=== PATIENT | female | born 1980 | race Caucasian/White ===

== ENCOUNTER 2021-01-17 21:11 | Observation (INO) | payer OTHER ==
[2021-01-17] MEDS ORDERED: MORPHINE SULFATE 4 MG/ML SYRINGE IV STA (22:20)
[2021-01-17] MEDS ORDERED: SODIUM CHLORIDE 0.9% 1,000 ML IV STA (22:20)
[2021-01-17] MEDS ORDERED: METOCLOPRAMIDE 5 MG/ML 2 ML VIAL IVP STA (22:20)
[2021-01-17 23:09] LABS: Anisocytosis Slight; Basophils % (A) 0 %; Eosinophils # (A) 0.2 k/uL (0-0.7); Eosinophils % (A) 2 %; HCT 38.9 % (34.0-46.0); HGB 12.7 gm/dL (11.4-16.0); Lymphocytes # (A) 1.1 k/uL (1.0-4.8); Lymphocytes % (A) 12 %; MCH 28.1 pg (25.0-35.0); MCHC 32.8 g/dL (31.0-37.0); MCV 85.8 fL (80.0-100.0); Mean Platelet Volume 7.5; Monocytes # (A) 0.2 k/uL (0-1.0); Monocytes % (A) 2 %; Neutrophils # (A) 7.5 k/uL (1.3-7.7); Neutrophils % (A) 83 %; Platelet Count 283 k/uL (150-450); RBC 4.53 m/uL (3.80-5.40); RDW 17.9 % (11.5-15.5)
[2021-01-17 23:25] LABS: ALT 14 U/L (4-34); AST 25 U/L (14-36); African American GFR (CKD) >90 (>60 ml/min/1.73 sqM); Albumin 4.3 g/dL (3.5-5.0); Alkaline Phosphatase 52 U/L (38-126); Amylase 60 U/L (30-110); Anion Gap 9 mmol/L; Blood Urea Nitrogen 14 mg/dL (7-17); Calcium 8.7 mg/dL (8.4-10.2); Carbon Dioxide 19 mmol/L (22-30); Chloride 113 mmol/L (98-107); Glucose 106 mg/dL (74-99); Lipase 72 U/L (23-300); Non-African American GFR(CKD) >90 (>60 ml/min/1.73 sqM); Potassium 3.5 mmol/L (3.5-5.1); Sodium 141 mmol/L (137-145); Total Bilirubin <0.1 mg/dL (0.2-1.3); Total Protein 6.4 g/dL (6.3-8.2)
[2021-01-17 23:30] LABS: Amorphous Sediment,Urine Many /hpf; Appearance,Urine Turbid (Clear); Bacteria,Urine Occasional /hpf; Bilirubin,Urine Negative (Negative); Blood,Urine Small (Negative); Color,Urine Yellow; Glucose,Urine (UA) Negative (Negative); Ketones,Urine Negative (Negative); Leukocyte Esterase,Urine Trace (Negative); Mucus,Urine Many /hpf; Nitrite,Urine Negative (Negative); PH, Urine 8.5 (5.0-8.0); Protein,Urine 1+ (Negative); RBC,Urine 9 /hpf (0-5); Specific Gravity,Urine 1.023 (1.001-1.035); Squamous Epithelial Cell,Urine 5 /hpf (0-4); Urobilinogen,Urine <2.0 mg/dL (<2.0); WBC,Urine 3 /hpf (0-5)
[2021-01-18] MEDS ORDERED: METOCLOPRAMIDE 5 MG/ML 2 ML VIAL IVP STA (00:18)
[2021-01-18] MEDS ORDERED: MORPHINE SULFATE 4 MG/ML SYRINGE IV STA (00:18)
[2021-01-18] MEDS ORDERED: PROCHLORPERAZINE INJ 10 MG/2 ML VIAL IM STA ×2 (00:55→02:29)
[2021-01-18] MEDS ORDERED: hydrOXYzine HCL 50 MG/ML 1 ML VIAL IM ONE (01:00)
[2021-01-18 01:24] VITALS: RESP 16
[2021-01-18] MEDS ORDERED: HYDROmorphone 0.5 MG/0.5 ML SYRINGE IVP STA (02:29)
[2021-01-18] MEDS ORDERED: PROMETHAZINE SUPPOSITORY 25 MG SUPP RECTAL STA (03:57)
[2021-01-18] MEDS ORDERED: PROMETHAZINE SUPPOSITORY 25 MG SUPP RECTAL ONE (04:15)
--- NOTE | 2021-01-18 04:25 | ED ---
Nausea/Vomiting/Diarrhea HPI - General Chief complaint: Nausea/Vomiting/Diarrhea Stated complaint: vomiting Time Seen by Provider: 01/17/21 21:53 Source: patient Mode of arrival: ambulatory Limitations: no limitations - History of Present Illness MD complaint: nausea, vomiting, abdominal pain -: hour(s) Description of Vomiting: food contents Location: diffuse Radiation: none Severity: severe Quality: aching Consistency: constant Improves with: none Worsens with: none Associated Symptoms: nausea/vomiting - Related Data Allergies Allergy/AdvReac Type Severity Reaction Status Date / Time No Known Allergies Allergy Verified 01/17/21 21:39 Review of Systems ROS Statement: Those systems with pertinent positive or pertinent negative responses have been documented in the HPI. ROS Other: All systems not noted in ROS Statement are negative. Constitutional: Denies: fever, chills Respiratory: Denies: cough, dyspnea Cardiovascular: Denies: chest pain, palpitations Gastrointestinal: Reports: abdominal pain. Denies: nausea, vomiting Past Medical History Additional Past Medical History / Comment(s): Gerd. Ulcers. History of Any Multi-Drug Resistant Organisms: None Reported Additional Past Surgical History / Comment(s): back Past Psychological History: No Psychological Hx Reported Smoking Status: Never smoker Past Alcohol Use History: None Reported Past Drug Use History: None Reported General Exam Limitations: no limitations General appearance: alert, in no apparent distress Head exam: Present: atraumatic, normocephalic Eye exam: Present: normal appearance. Absent: scleral icterus, conjunctival injection ENT exam: Present: mucous membranes dry Neck exam: Present: normal inspection Respiratory exam: Present: normal lung sounds bilaterally. Absent: respiratory distress, wheezes, rales, rhonchi, stridor Cardiovascular Exam: Present: regular rate, normal rhythm, normal heart sounds. Absent: systolic murmur, diastolic murmur, rubs, gallop GI/Abdominal exam: Present: soft, hypoactive bowel sounds. Absent: distended, tenderness, guarding, rebound, rigid, mass, pulsatile mass, hernia Extremities exam: Present: normal inspection, normal capillary refill. Absent: pedal edema, calf tenderness Back exam: Present: normal inspection. Absent: CVA tenderness (R), CVA tenderness (L) Neurological exam: Present: alert Skin exam: Present: warm, dry, intact, normal color. Absent: rash Course Vital Signs 06/01/18/21 01/18/21 21:37 01:24 02:38 Temperature 97.7 F Pulse Rate 73 50 L 54 L Respiratory 18 16 16 Rate Blood Pressure 159/92 139/78 141/78 O2 Sat by Pulse 98 100 99 Oximetry 01/18/21 04:24 Temperature 98.0 F Pulse Rate 57 L Respiratory 16 Rate Blood Pressure 143/85 O2 Sat by Pulse 99 Oximetry Medical Decision Making - Lab Data Result diagrams: 01/17/21 23:03 01/17/21 23:03 Lab Results 01/17/21 01/17/21 01/17/21 Range/Units 23:03 23:03 23:03 WBC 9.0 (3.8-10.6) k/uL RBC 4.53 (3.80-5.40) m/uL Hgb 12.7 (11.4-16.0) gm/dL Hct 38.9 (34.0-46.0) % MCV 85.8 (80.0-100.0) fL MCH 28.1 (25.0-35.0) pg MCHC 32.8 (31.0-37.0) g/dL RDW 17.9 H (11.5-15.5) % Plt Count 283 (150-450) k/uL MPV 7.5 Neutrophils % 83 % Lymphocytes % 12 % Monocytes % 2 % Eosinophils % 2 % Basophils % 0 % Neutrophils # 7.5 (1.3-7.7) k/uL Lymphocytes # 1.1 (1.0-4.8) k/uL Monocytes # 0.2 (0-1.0) k/uL Eosinophils # 0.2 (0-0.7) k/uL Basophils # 0.0 (0-0.2) k/uL Anisocytosis Slight Sodium 141 (137-145) mmol/L Potassium 3.5 (3.5-5.1) mmol/L Chloride 113 H (98-107) mmol/L Carbon Dioxide 19 L (22-30) mmol/L Anion Gap 9 mmol/L BUN 14 (7-17) mg/dL Creatinine 0.57 (0.52-1.04) mg/dL Est GFR (CKD-EPI)AfAm >90 (>60 ml/min/1.73 sqM) Est GFR (CKD-EPI)NonAf >90 (>60 ml/min/1.73 sqM) Glucose 106 H (74-99) mg/dL Calcium 8.7 (8.4-10.2) mg/dL Total Bilirubin <0.1 L (0.2-1.3) mg/dL AST 25 (14-36) U/L ALT 14 (4-34) U/L Alkaline Phosphatase 52 (38-126) U/L Total Protein 6.4 (6.3-8.2) g/dL Albumin 4.3 (3.5-5.0) g/dL Amylase 60 (30-110) U/L Lipase 72 (23-300) U/L Urine Color Yellow Urine Appearance Turbid H (Clear) Urine pH 8.5 H (5.0-8.0) Ur Specific [place] 1.023 (1.001-1.035) Urine Protein 1+ H (Negative) Urine Glucose (UA) Negative (Negative) Urine Ketones Negative (Negative) Urine Blood Small H (Negative) Urine Nitrite Negative (Negative) Urine Bilirubin Negative (Negative) Urine Urobilinogen <2.0 (<2.0) mg/dL Ur Leukocyte Esterase Trace H (Negative) Urine RBC 9 H (0-5) /hpf Urine WBC 3 (0-5) /hpf Ur Squamous Epith Cells 5 H (0-4) /hpf Amorphous Sediment Many H (None) /hpf Urine Bacteria Occasional H (None) /hpf Urine Mucus Many H (None) /hpf Disposition Referrals: Nonstaff,Physician [Primary Care Provider] - 1-2 days
[2021-01-18] MEDS ORDERED: ONDANSETRON 4 MG in SODIUM CHLORIDE 0.9% 50 ML IVPB PRN (04:47)
--- NOTE | 2021-01-18 04:53 | P.HPIM ---
History of Present Illness H&P Date: 01/18/21 The patient is a 40-year-old female with a PMH of marijuana abuse who presented to the emergency room with complaints of intractable nausea and vomiting. Patient reports that she suddenly started vomiting 36 hours ago and has not been able to stop since then despite [id number] antiemetics. She also reports 7 out of 10 diffuse abdominal pain during this time, no clear alleviating or exacerbating features. Reports throwing up small amounts of nonbloody nonbilious vomitus every few minutes. She reports that similar episodes occur every few months and she normally gets admitted for to the hospital for a few days and that they resolve spontaneously. Reports having 2 loose bowel movemen ts since the onset of her symptoms. She reports having undergone a workup previously and was told that a clear cause was not found. She admits to smoking marijuana every other day. She denied chest pain, shortness of breath, cough, fever, chills. Denied headaches, visual disturbances, weakness, numbness, tingling. She underwent an extensive evaluation in the emergency room with laboratory evaluation remarkable for a chloride of 113, and CO2 19. Review of systems: Pertinent positives and negatives as discussed in HPI, a complete review of systems was performed and all other systems are negative. Physical examination: General: non toxic, no distress, appears older than stated age, normal weight Derm: no unusual rashes/lesions no unusual ecchymoses, warm, dry Head: atraumatic, normocephalic, symmetric Eyes: EOMI, no lid lag, anicteric sclera, pupils equal round reactive to light ENT: Nose and ears atraumatic, no thrush, no pharyngeal erythema Neck: No thyromegaly, no cervical lymphadenopathy, trachea midline, supple Mouth: no lip lesion, mucus membranes moist Cardiovascular: S1S2 reg, no murmur, positive posterior tibial pulse bilateral, no edema, capillary refill less than 2 seconds Lungs: CTA bilateral, no rhonchi, no rales , no accessory muscle use Abdominal: soft, mild diffuse tenderness, no guarding, no appreciable organomegaly, normal bowel sounds Ext: no gross muscle atrophy, muscle strength 5 out of 5 in all 4 extremities grossly, no contractures, Neuro: CN II-XI grossly intact, light touch intact all 4 extremities, finger to nose within normal limits, Psych: Alert, oriented, appropriate affect Assessment/plan Intractable nausea and vomiting, possibly cannabinoid hyperemesis syndrome -Continue with antiemetics -IV fluids -Obtain lactate level -Follow-up CT abdomen as ordered by the ED physician -Obtain EKG -Advised on importance of cessation of marijuana use DVT prophylaxis -Heparin subq Discussed with: Patient Anticipated discharge date: in am Anticipated discharge place: Home A total of 35 minutes was spent on the care of this complex patient more than 50% of the time was spent in counseling and care coordination. Past Medical History Additional Past Medical History / Comment(s): Gerd. Ulcers. History of Any Multi-Drug Resistant Organisms: None Reported Additional Past Surgical History / Comment(s): back Past Psychological History: No Psychological Hx Reported Smoking Status: Never smoker Past Alcohol Use History: None Reported Past Drug Use History: None Reported Medications and Allergies Allergies Allergy/AdvReac Type Severity Reaction Status Date / Time No Known Allergies Allergy Verified 01/17/21 21:39 Physical Exam Vitals: Vital Signs Temp Pulse Resp BP Pulse Ox 01/18/21 04:24 98.0 F 57 L 16 143/85 99 01/18/21 02:38 54 L 16 141/78 99 01/18/21 01:24 50 L 16 139/78 100 01/17/21 21:37 97.7 F 73 18 159/92 98 Intake and Output 01/17/21 01/17/21 01/18/21 14:59 22:59 06:59 Other: Weight 54.431 kg Results CBC & Chem 7: 01/17/21 23:03 01/17/21 23:03 Labs: Abnormal Lab Results - Last 24 Hours (Table) 01/17/21 01/17/21 01/17/21 Range/Units 23:03 23:03 23:03 RDW 17.9 H (11.5-15.5) % Chloride 113 H (98-107) mmol/L Carbon Dioxide 19 L (22-30) mmol/L Glucose 106 H (74-99) mg/dL Total Bilirubin <0.1 L (0.2-1.3) mg/dL Urine Appearance Turbid H (Clear) Urine pH 8.5 H (5.0-8.0) Urine Protein 1+ H (Negative) Urine Blood Small H (Negative) Ur Leukocyte Esterase Trace H (Negative) Urine RBC 9 H (0-5) /hpf Ur Squamous Epith Cells 5 H (0-4) /hpf Amorphous Sediment Many H (None) /hpf Urine Bacteria Occasional H (None) /hpf Urine Mucus Many H (None) /hpf
[2021-01-18] MEDS ORDERED: MELATONIN 5 MG TABLET PO ONE (05:00)
--- NOTE | 2021-01-18 05:07 | CT ---
EXAMINATION TYPE: CT abdomen pelvis w con DATE OF EXAM: 01/18/2021 COMPARISON: None HISTORY: Abdominal pain CT DLP: mGycm Automated exposure control for dose reduction was used. CONTRAST: Performed , patient injected with mL of . The contrast was Isovue 100 mL. Of lung bases are clear. There is no pleural effusion. Heart size is normal. There is no pericardial effusion. Liver spleen stomach pancreas gallbladder appear normal. The bile ducts are not dilated. There is no adrenal mass. Kidneys show satisfactory contrast opacification. There is no hydronephrosi s. Ureters are not dilated. There is no retroperitoneal adenopathy. Appendix appears normal. Bladder distends smoothly. Delayed images show normal renal excretion. There is no inguinal hernia. There is small amount of free fluid in the pelvis. Uterus is anteverted. There is 3 cm cyst on the right ovary. There is no mesenteric edema. There is no ascites or free air. There is no evidence of bowel obstruct ion. The lumbar vertebra have normal alignment. There is posterior disc herniation at L2-3 with some impingement on the spinal canal. The bony pelvis is intact. The hip joints are intact. There is no hi p dysplasia. IMPRESSION: Normal appendix. Right ovarian cyst. No solid pelvic mass. Small amount of low-density free fluid in the pelvis. Clinical significance is not clear. Moderate-sized posterior L2-3 lumbar disc herniation. Smaller L1-2 lumbar disc herniation.
[2021-01-18] MEDS: SODIUM CHLORIDE 0.9% 1,000 ML IV SCH ×2 (05:09→16:28)
[2021-01-18] MEDS ORDERED: NALOXONE 0.4 MG/ML 1 ML VIAL IV PRN (05:24)
[2021-01-18] MEDS ORDERED: MORPHINE SULFATE 4 MG/ML SYRINGE IV PRN (05:24)
[2021-01-18] MEDS ORDERED: PROCHLORPERAZINE 5 MG TAB PO PRN (08:00)
[2021-01-18] MEDS: HEPARIN SODIUM,PORCINE/PF 5,000 UNIT/0.5 ML SYRINGE SQ SCH ×2 (08:25→16:24)
[2021-01-18] MEDS ORDERED: PANTOPRAZOLE 40 MG/10 ML VIAL IV SCH (09:00)
[2021-01-18] MEDS: ONDANSETRON 4 MG/2 ML VIAL IVP PRN ×2 (11:46→16:22)
[2021-01-18] MEDS ORDERED: PROMETHAZINE 25 MG TAB PO PRN (12:00)
[2021-01-18] MEDS ORDERED: MORPHINE SULFATE 2 MG/ML SYRINGE IV PRN (14:19)
--- NOTE | 2021-01-18 14:28 | P.PN ---
Subjective Progress Note Date: 01/18/21 Patient still having difficulty with nausea and vomiting. She is unable to keep anything down. She is also complaining of nonspecific pain all over her abdomen. Objective - Vital Signs Vital signs: Vital Signs Temp 98.5 F 01/18/21 06:43 Pulse 64 01/18/21 08:38 Resp 16 01/18/21 08:38 BP 156/79 01/18/21 06:43 Pulse Ox 98 01/18/21 08:38 Intake & Output 01/17/21 01/18/21 01/18/21 18:59 06:59 18:59 Output Total 200 Balance -200 Weight 59.3 kg Output: Urine 200 Other: Voiding Method Toilet - Exam General: The patient is awake and alert, in no distress Eye: there is normal conjunctiva bilaterally. Neck: The neck is supple, there is no JVD. Cardiovascular: Normal S1-S2, no S3-S4, no murmurs. Respiratory: Lungs clear to auscultation bilaterally Gastrointestinal: Abdomen is soft, nontender Musculoskeletal: There is no pedal edema. Neurological:. Speech is normal. Skin: Skin is warm and dry - Labs CBC & Chem 7: 01/17/21 23:03 01/17/21 23:03 Labs: Abnormal Lab Results - Last 24 Hours (Table) 01/17/21 01/17/21 01/17/21 Range/Units 23:03 23:03 23:03 RDW 17.9 H (11.5-15.5) % Chloride 113 H (98-107) mmol/L Carbon Dioxide 19 L (22-30) mmol/L Glucose 106 H (74-99) mg/dL Total Bilirubin <0.1 L (0.2-1.3) mg/dL Urine Appearance Turbid H (Clear) Urine pH 8.5 H (5.0-8.0) Urine Protein 1+ H (Negative) Urine Blood Small H (Negative) Ur Leukocyte Esterase Trace H (Negative) Urine RBC 9 H (0-5) /hpf Ur Squamous Epith Cells 5 H (0-4) /hpf Amorphous Sediment Many H (None) /hpf Urine Bacteria Occasional H (None) /hpf Urine Mucus Many H (None) /hpf Assessment and Plan Assessment: This is a 40-year-old female with past medical history significant for marijuana abuse that presented to the emergency room with worsening nausea and vomiting. Patient was evaluated in the ER and admitted to the hospital for further management of her medical problems noted below 1. Intractable nausea and vomiting, most likely secondary to cannabinoid hyperemesis syndrome. Patient was counseled extensively to quit smoking marijuana. Computed tomography scan of the abdomen and pelvis with no acute findings. 2. Underlying seizure disorder: Continue home medication 3. DVT prophylaxis with subcu heparin Today, I reviewed her medication list and lab work results. Continue IV fluid hydration. Antiemetic as needed. Patient was having bouts of diarrhea awaiting C. diff screen
[2021-01-18 15:07] VITALS: BP 150/89; PULSE 49; TEMP 99
[2021-01-18] MEDS ORDERED: MELATONIN 5 MG TABLET PO SCH ×2 (21:00)
[2021-01-18] MEDS ORDERED: OXcarbazepine 300 MG TAB PO SCH (21:00)
--- NOTE | 2021-01-19 10:14 | P.DS ---
Providers Date of admission: 01/18/21 05:27 Expected date of discharge: 01/19/21 Attending physician: Joy Chavez MD Primary care physician: Physician Nonstaff Hospital Course: Patient left the hospital AGAINST MEDICAL ADVICE. Please refer to the electronic chart for further details about this hospitalization. Plan - Discharge Summary Discharge Rx Participant: Yes New Discharge Prescriptions: No Action OXcarbazepine [Trileptal] 900 mg PO HS Discharge Medication List OXcarbazepine [Trileptal] 900 mg PO HS 01/18/21 [History] Follow up Appointment(s)/Referral(s): Nonstaff,Physician [Primary Care Provider] - 1-2 days Discharge Disposition: Left Against Medical Advice
== END 2021-01-18 17:43 | disposition left against medical advice (07) ==
LOC: EC 21:11 → 6PED 01-18 05:27
PROVIDERS: ADMIT Internal Medicine; ATTEND Internal Medicine
DX: R11.2 Nausea with vomiting, unspecified (principal); R10.84 Generalized abdominal pain; R19.7 Diarrhea, unspecified; Z53.29 Procedure and treatment not carried out because of patient's decision for other reasons; F12.10 Cannabis abuse, uncomplicated; K21.9 Gastro-esophageal reflux disease without esophagitis; G40.909 Epilepsy, unspecified, not intractable, without status epilepticus; Z20.822 Contact with and (suspected) exposure to COVID-19; Z87.11 Personal history of peptic ulcer disease; Z79.899 Other long term (current) drug therapy
CPT/HCPCS: 96361 ×3; 96372 ×2; 96375 ×3; 96376 ×2; 96374; 99285; 36415 ×2; 93005; 80053; 82150; 83605; 83690; 85025; 81001; 87635; 74177; G0378; S0183; J2270 ×3; J0780; J2765 ×2; J2405 ×2; J3410; C9113; J1170; Q9967; J1644

== ENCOUNTER → 2021-03-11 | Outpatient (CLI) | payer OTHER ==
--- NOTE | 2021-03-12 11:59 | CT ---
EXAMINATION TYPE: CT brain wo con DATE OF EXAM: 03/11/2021 COMPARISON: None HISTORY: 40 year-old female history of migraines, stroke AND EPILEPSY. 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 Coronal and sagittal r econstructions performed. CT DLP: 1385.4 mGycm Automated exposure control for dose reduction was used. FINDINGS: There is no evidence of acute intracranial hemorrhage, acute ischemic changes, mass effect, or extra -axial fluid collection. There is no effacement of cerebral sulci or basal subarachnoid cisterns. T here is no hydrocephalus. There is no midline shift. Mathias-white matter distinction is preserved. Prominent CSF space near the region of the left cavernous sinus measuring 2.0 cm AP by 1.4 cm cranial caudal by 1.0 cm wide. Very mild cortical volume loss along the frontal convexities. Leftward nasal septal deviation. Paranasal sinuses and mastoid air cells well pneumatized. Orbits and globes are intact. IMPRESSION: 1. Asymmetric enlargement of the left Meckel's cave. This may be an incidental finding but may be a m arker for elevated intracranial pressures (such as in setting of pseudotumor cerebri). There have als o been some reports of associated spontaneous CSF leak. Underlying arachnoid cyst, epidermoid cyst, o r dural ectasia are also considerations. Given the patient's symptoms, consider neurosurgery referral to determine the clinical significance of this finding. 2. Otherwise, no acute intracranial abnormality seen.
== END | disposition home or self-care (01) ==
LOC: RADCTMAIN 19:00
PROVIDERS: ATTEND Family Medicine
DX: G93.89 Other specified disorders of brain (principal); I63.9 Cerebral infarction, unspecified; Q43.0 Meckel's diverticulum (displaced) (hypertrophic); G96.00 Cerebrospinal fluid leak, unspecified; G40.409 Other generalized epilepsy and epileptic syndromes, not intractable, without status epilepticus; R41.3 Other amnesia; G43.909 Migraine, unspecified, not intractable, without status migrainosus
CPT/HCPCS: 70450

== ENCOUNTER → 2021-05-19 | Outpatient (CLI) | payer OTHER ==
[2021-05-19 16:18] LABS: Partial Thromboplastin Time 24.9 sec (22.0-30.0); Prothrombin Time 10.5 sec (9.0-12.0)
[2021-05-20 01:17] LABS: HCT 37.3 % (37.2-46.3); HGB 11.9 g/dL (12.0-15.0); MCH 28.5 pg (27.0-32.0); MCHC 31.9 g/dL (32.0-37.0); MCV 89.2 fL (80.0-97.0); Mean Platelet Volume 11.2 fL (9.5-12.2); Platelet Count 237 X 10*3/uL (140-440); RBC 4.18 X 10*6/uL (4.10-5.20); RDW 16.2 % (11.5-14.5); WBC 6.86 X 10*3/uL (4.50-10.00)
[2021-05-20 06:43] LABS: % Iron Saturation 8.42 (12.00-45.00); ALT 13 U/L (8-44); AST 16 U/L (13-35); African American GFR (CKD) 107.6 (60.0-200.0); Albumin 4.7 g/dL (3.8-4.9); Albumin/Globulin Ratio 2.61 (1.60-3.17); Alkaline Phosphatase 60 U/L (41-126); BUN/Creat Ratio 20.75 Ratio (12.00-20.00); Blood Urea Nitrogen 16.6 mg/dL (9.0-27.0); Calcium 9.2 mg/dL (8.7-10.3); Chloride 103 mmol/L (96-109); Chol/HDL Ratio 2.29 Ratio; Ferritin 7.5 ng/mL (10.0-291.0); Globulin 1.8 g/dL (1.6-3.3); Glucose 76 mg/dL (70-110); Iron 38 ug/dL (50-170); LDL Cholesterol,Calculated 76.9 mg/dL (0.0-131.0); Non-African American GFR(CKD) 92.9 (60.0-200.0); Phosphorus 3.5 mg/dL (2.4-5.1); Potassium 3.8 mmol/L (3.5-5.5); Prealbumin 24.8 mg/dL (18.0-42.0); Sodium 139 mmol/L (135-145); Total Bilirubin <0.20 mg/dL (0.30-1.20); Total Iron Binding Capacity 447 ug/dL (228-460); Total Protein 6.5 g/dL (6.2-8.2)
== END | disposition home or self-care (01) ==
LOC: LABWHC1 14:43
PROVIDERS: ATTEND Psychiatry & Neurology Pain Medicine
DX: D64.9 Anemia, unspecified (principal); R56.9 Unspecified convulsions; E89.1 Postprocedural hypoinsulinemia; D50.8 Other iron deficiency anemias; E44.0 Moderate protein-calorie malnutrition; E55.9 Vitamin D deficiency, unspecified; K74.1 Hepatic sclerosis; N19 Unspecified kidney failure; K50.90 Crohn's disease, unspecified, without complications
CPT/HCPCS: 36415; 80053; 80061; 80183; 82306; 82525; 82607; 82728; 82746; 83036; 83540; 83550; 83735; 83970; 84100; 84134; 84207; 84255; 84425; 84439; 84443; 84481; 84590; 84630; 85027; 85610; 85730

== ENCOUNTER → 2021-06-20 | Day surgery (SDC) | payer OTHER ==
[2021-06-16 13:22] VITALS: BMI 22.1
[~2021-06-20] MED LIST: LACTATED RINGERS 1,000 ML IV SCH; LIDOCAINE 1% (10MG/ML) FOR IV START INTRADERMA ONE
--- NOTE | 2021-06-20 06:57 | P.GSHP ---
History of Present Illness H&P Date: 06/20/21 CHIEF COMPLAINT: GERD HISTORY OF PRESENT ILLNESS: The patient is a 40-year-old female who presents reports gastroesophageal reflux disease. Upper endoscopy was offered for further evaluation and management. PAST MEDICAL HISTORY: Please see list. PAST SURGICAL HISTORY: Please see list. MEDICATIONS: Please see list. ALLERGIES: Please see list. SOCIAL HISTORY: No illicit drug use FAMILY HISTORY: No reports of Crohn disease or ulcerative colitis. REVIEW OF ORGAN SYSTEMS: CONSTITUTIONAL: No reports of fevers or chills. GI: Denies any blood in stools or constipation. PHYSICAL EXAM: VITAL SIGNS: Stable GENERAL: Well-developed and pleasant in no acute distress. HEENT: No scleral icterus. Extraocular movements grossly intact. Moist buccal mucosa. NECK: Supple without lymphadenopathy. CHEST: Unlabored respirations. Equal bilateral excursions. CARDIOVASCULAR: Regular rate and rhythm. Distal 2+ pulses. ABDOMEN: Soft, nondistended. MUSCULOSKELETAL: No clubbing, cyanosis, or edema. ASSESSMENT: 1. Gastroesophageal reflux disease PLAN: 1. Recommend proceeding with an upper endoscopy Past Medical History Past Medical History: Asthma, Cancer, GERD/Reflux, Seizure Disorder Additional Past Medical History / Comment(s): POTS, LAST SEIZURE MONTHS AGO, HX TIA 2014 WHICH "AFFECTED MEMORY & COGNITIVE FUNCTION", STOMACH ULCERS, NAUSEA & VOMITING., BACK PAIN, MELANOMA , RECENT ANEMIA AND LOW B-12, MIGRAINES History of Any Multi-Drug Resistant Organisms: None Reported Past Surgical History: Back Surgery Additional Past Surgical History / Comment(s): 14 LAPAROSCOPIES, AND 15 D & C'S- PATIENT WILL BRING LIST OF ADDITIONAL SURGERIES Past Anesthesia/Blood Transfusion Reactions: No Reported Reaction, Motion Sickness Additional Past Anesthesia/Blood Transfusion Reaction / Comment(s): MOTHER- PONV AND HEADACHES Past Psychological History: Anxiety Smoking Status: Never smoker Past Alcohol Use History: None Reported Additional Past Alcohol Use History / Comment(s): SMOKES 1-2 CIGARETTES/DAY, STARTED SMOKING AGE 12., HX OF 1PPD. Past Drug Use History: Marijuana Additional Drug Use History / Comment(s): CURRENT MARIJUANA - Past Family History Mother Family Medical History: No Reported History Medications and Allergies Home Medications Medication Instructions Recorded Confirmed Type OXcarbazepine [Trileptal] 900 mg PO HS 01/18/21 06/16/21 History Albuterol Sulfate [Proair Hfa] 1 - 2 puff INHALATION Q6HR PRN 06/16/21 06/16/21 History Fluticasone Nasal [place] [Flonase 2 spray EA NOSTRIL DAILY PRN 06/16/21 06/16/21 History Nasal [place]] Ibuprofen [Motrin Ib] 800 mg PO DIRECTED 06/16/21 06/16/21 History Omeprazole 40 mg PO BID 06/16/21 06/16/21 History SUMAtriptan SUCCINATE [Imitrex] 100 mg IM DIRECTED PRN 06/16/21 06/16/21 History Toradol (Unknown Dose) 1 dose PO DAILY 06/16/21 History cloNIDine HCL [Catapres] 0.1 mg PO HS 06/16/21 06/16/21 History tiZANidine [Zanaflex] 4 mg PO BID 06/16/21 06/16/21 History Allergies Allergy/AdvReac Type Severity Reaction Status Date / Time fludrocortisone Allergy Severe ELEVATED Verified 06/16/21 12:56 [From [facility]] BLOODPRESSURE
[2021-06-20 09:08] VITALS: TEMP 98.3
[2021-06-20 10:07] VITALS: RESP 16
[2021-06-20 10:36] VITALS: BP 115/74; PULSE 61
--- NOTE | 2021-06-20 11:28 | P.PCN ---
Date of Procedure: 06/20/21 Description of Procedure: PREOPERATIVE DIAGNOSIS: Gastroesophageal reflux disease Epigastric abdominal pain Dysphagia POSTOPERATIVE DIAGNOSIS: Gastroesophageal reflux disease Epigastric abdominal pain Dysphagia Upper esophageal stenosis Gastritis with recent bleed OPERATION: Esophagogastroduodenoscopy with rigid dilator over the guidewire 57 Fr with dilation Esophagogastroduodenoscopy with cold forceps biopsies stomach/antrum SURGEON: Stephanie Olivo MD ANESTHESIA: MAC. INDICATIONS: The patient is a 40-year-old male who presents with a history of gastroesophageal reflux disease with abdominal pain. Benefits and risks of the procedure were described. Informed consent was obtained. DESCRIPTION: The patient was brought into the endoscopy suite and laid in the left lateral decubitus position. After a timeout was confirmed, the procedure was initiated. An Olympus gastroscope was passed into the posterior oropharynx where an upper esophageal stenosis was identified. The scope was passed down to the distal esophagus. The scope was entered into the body of the stomach. The duodenal sphincter was hypertensive. The scope was gently pressed and entered into the duodenal bulb to the fourth portion of the duodenum without ulceration or duodenitis. To address the upper esophageal stenosis, rigid dilator over guidewire was selected. Next using an English rigid dilator, a guidewire was placed through the gastroscope. Next the scope was withdrawn. A 57-[place]ian rigid English dilator was passed carefully along the posterior oropharynx to 45 cm and left in place for 2-3 minutes stretch. The dilator was withdrawn including the guidewire. The scope was reentered along the posterior oropharynx with no findings of full- thickness tear of the upper esophageal sphincter. Additional findings below. Within the stomach, mild gastritis was identified along the body of the stomach with cold forceps biopsies obtained. The large esophageal valve was evaluated with Hill grade 2 lower esophageal valve. LA grade B erosive esophagitis was identified. No full-thickness injury was encountered. The GI tract was desufflated. The patient tolerated the procedure well. FINDINGS: Upper esophageal stenosis dilated 57-[place]ian rigid dilator Diaphragmatic hiatus at 39 cm from the incisors Squamocolumnar junction 38 cm from the incisors. Gastritis along the gastric body and fundus cold forceps biopsies obtained Duodenum without ulcers LA grade B erosive esophagitis Hill grade 2 lower esophageal valve. RECOMMENDATIONS: Omeprazole 40 mg daily Upper endoscopy as needed Recommend esophagram Plan - Discharge Summary New Discharge Prescriptions: Continue tiZANidine [Zanaflex] 4 mg PO BID Omeprazole 40 mg PO BID OXcarbazepine [Trileptal] 900 mg PO HS cloNIDine HCL [Catapres] 0.1 mg PO HS Fluticasone Nasal [place] [Flonase Nasal [place]] 2 spray EA NOSTRIL DAILY PRN PRN Reason: Allergy Symptoms Albuterol Sulfate [Proair Hfa] 1 - 2 puff INHALATION Q6HR PRN PRN Reason: Shortness Of Breath Toradol (Unknown Dose) 1 dose PO DAILY Ibuprofen [Motrin Ib] 800 mg PO DIRECTED SUMAtriptan SUCCINATE [Imitrex] 100 mg IM DIRECTED PRN PRN Reason: Migraine Headache Discharge Medication List OXcarbazepine [Trileptal] 900 mg PO HS 01/18/21 [History] Albuterol Sulfate [Proair Hfa] 1 - 2 puff INHALATION Q6HR PRN 06/16/21 [History] Fluticasone Nasal [place] [Flonase Nasal [place]] 2 spray EA NOSTRIL DAILY PRN 06/16/21 [History] Ibuprofen [Motrin Ib] 800 mg PO DIRECTED 06/16/21 [History] Omeprazole 40 mg PO BID 06/16/21 [History] SUMAtriptan SUCCINATE [Imitrex] 100 mg IM DIRECTED PRN 06/16/21 [History] Toradol (Unknown Dose) 1 dose PO DAILY 06/16/21 [History] cloNIDine HCL [Catapres] 0.1 mg PO HS 06/16/21 [History] tiZANidine [Zanaflex] 4 mg PO BID 06/16/21 [History] Follow up Appointment(s)/Referral(s): Stephanie Olivo MD [STAFF PHYSICIAN] - 07/07/21 Patient Instructions/Handouts: *Surgery [facility] - (Anesthesia) Endoscopy Discharge Instructions, Gastritis (DC), Upper Endoscopy (DC), Esophageal Dilation (DC) Discharge Disposition: HOME SELF-CARE
== END | disposition home or self-care (01) ==
LOC: ORWHC2ENDO 08:27
PROVIDERS: ATTEND Surgery Plastic and Reconstructive Surgery
DX: K22.2 Esophageal obstruction (principal); K21.9 Gastro-esophageal reflux disease without esophagitis; J45.909 Unspecified asthma, uncomplicated; Z88.8 Allergy status to other drugs, medicaments and biological substances; I10 Essential (primary) hypertension; G40.909 Epilepsy, unspecified, not intractable, without status epilepticus; I49.8 Other specified cardiac arrhythmias; I69.311 Memory deficit following cerebral infarction; I69.319 Unspecified symptoms and signs involving cognitive functions following cerebral infarction; Z87.11 Personal history of peptic ulcer disease; Z85.820 Personal history of malignant melanoma of skin; Z97.2 Presence of dental prosthetic device (complete) (partial); Z98.890 Other specified postprocedural states; F17.210 Nicotine dependence, cigarettes, uncomplicated; F41.9 Anxiety disorder, unspecified; Z79.1 Long term (current) use of non-steroidal anti-inflammatories (NSAID); Z79.899 Other long term (current) drug therapy
CPT/HCPCS: 43239; 43248; 43249; 81025; 84703; 88305

== ENCOUNTER 2021-12-06 16:40 | Emergency (ER) | payer OTHER ==
[2021-12-06 17:25] VITALS: BP 160/103; PULSE 91; RESP 18; TEMP 98.2
[2021-12-06 17:49] LABS: Appearance,Urine Cloudy (Clear); Bilirubin,Urine Negative (Negative); Blood,Urine Large (Negative); Color,Urine Yellow; Glucose,Urine (UA) Negative (Negative); Ketones,Urine Negative (Negative); Leukocyte Esterase,Urine Large (Negative); Mucus,Urine Rare /hpf; Nitrite,Urine Negative (Negative); PH, Urine 7.5 (5.0-8.0); Protein,Urine 1+ (Negative); RBC,Urine >182 /hpf (0-5); Squamous Epithelial Cell,Urine 1 /hpf (0-4); Urobilinogen,Urine <2.0 mg/dL (<2.0); WBC,Urine >182 /hpf (0-5)
--- NOTE | 2021-12-06 18:26 | ED ---
Female Urogenital HPI - General Chief complaint: Urogenital Stated complaint: Vaginal bleeding Source: patient, RN notes reviewed Mode of arrival: ambulatory Limitations: no limitations - History of Present Illness Initial comments: This is a pleasant 41-year-old female with a history of endometriosis, interstitial cystitis, who presents to the emergency department complaining of dysuria and hematuria. Patient states that she has had multiple urinary tract infections in the past. Patient states she recently called her [employer] and had antibiotics called in. However, she recurrent a has dysuria and hematuria. Patient bleeding from no other sites. Patient feels well otherwise. No fever. No significant back or flank pain. No chest pain or shortness of breath. Patient denies chance of . Patient states she just finished her menstrual period. Patient states that she is in between primary care physicians. - Related Data Home Medications Medication Instructions Recorded Confirmed OXcarbazepine [Trileptal] 900 mg PO HS 01/18/21 06/16/21 Albuterol Sulfate [Proair Hfa] 1 - 2 puff INHALATION Q6HR PRN 06/16/21 06/16/21 Fluticasone Nasal [place] [Flonase 2 spray EA NOSTRIL DAILY PRN 06/16/21 06/16/21 Nasal [place]] Ibuprofen [Motrin Ib] 800 mg PO DIRECTED 06/16/21 06/16/21 Omeprazole 40 mg PO BID 06/16/21 06/16/21 SUMAtriptan SUCCINATE [Imitrex] 100 mg IM DIRECTED PRN 06/16/21 06/16/21 Toradol (Unknown Dose) 1 dose PO DAILY 06/16/21 cloNIDine HCL [Catapres] 0.1 mg PO HS 06/16/21 06/16/21 tiZANidine [Zanaflex] 4 mg PO BID 06/16/21 06/16/21 Previous Rx's Medication Instructions Recorded Nitrofurantoin Monohyd/M-Cryst 100 mg PO Q12HR #14 cap 12/06/21 [Macrobid] Allergies Allergy/AdvReac Type Severity Reaction Status Date / Time fludrocortisone Allergy Severe ELEVATED Verified 12/06/21 17:25 [From [place]] BLOODPRESSURE Review of Systems ROS Statement: Those systems with pertinent positive or pertinent negative responses have been documented in the HPI. ROS Other: All systems not noted in ROS Statement are negative. Past Medical History Past Medical History: Asthma, Cancer, GERD/Reflux, Hypertension, Seizure Disorder Additional Past Medical History / Comment(s): POTS, LAST SEIZURE MONTHS AGO, HX TIA 2014 WHICH "AFFECTED MEMORY & COGNITIVE FUNCTION", STOMACH ULCERS, NAUSEA & VOMITING., BACK PAIN, MELANOMA , RECENT ANEMIA AND LOW B-12, MIGRAINES History of Any Multi-Drug Resistant Organisms: None Reported Past Surgical History: Back Surgery Additional Past Surgical History / Comment(s): 14 LAPAROSCOPIES, AND 15 D & C'S- PATIENT WILL BRING LIST OF ADDITIONAL SURGERIES Past Anesthesia/Blood Transfusion Reactions: No Reported Reaction, Motion Sickness Additional Past Anesthesia/Blood Transfusion Reaction / Comment(s): MOTHER- PONV AND HEADACHES Past Psychological History: Anxiety Smoking Status: Never smoker Past Alcohol Use History: None Reported Past Drug Use History: Marijuana - Past Family History Mother Family Medical History: No Reported History General Exam - General Exam Comments Initial Comments: Patient does not appear to be ill or toxic. Vital signs reviewed. Blood pressure 160/103. Limitations: no limitations General appearance: alert, in no apparent distress Head exam: Present: atraumatic, normocephalic, normal inspection Eye exam: Present: normal appearance, PERRL, EOMI. Absent: scleral icterus, conjunctival injection, periorbital swelling ENT exam: Present: normal exam, normal oropharynx, mucous membranes moist, normal external ear exam. Absent: mucous membranes dry Neck exam: Present: normal inspection, full ROM. Absent: tenderness, meningismus, lymphadenopathy Respiratory exam: Present: normal lung sounds bilaterally. Absent: respiratory distress, wheezes, rales, rhonchi, stridor Cardiovascular Exam: Present: regular rate, normal rhythm, normal heart sounds. Absent: systolic murmur, diastolic murmur, rubs, gallop, clicks GI/Abdominal exam: Present: soft, normal bowel sounds. Absent: distended, tenderness, guarding, rebound, rigid Extremities exam: Present: normal inspection, full ROM, normal capillary refill. Absent: tenderness, pedal edema, joint swelling, calf tenderness Back exam: Present: normal inspection Neurological exam: Present: alert, oriented X3, CN II-XII intact Psychiatric exam: Present: normal affect, normal mood Skin exam: Present: warm, dry, intact, normal color. Absent: rash Course Vital Signs 05/10/22 17:22 Temperature 98.2 F Pulse Rate 91 Respiratory 18 Rate Blood Pressure 160/103 O2 Sat by Pulse 98 Oximetry Medical Decision Making - Medical Decision Making Patient percents with hematuria. States she has recurrent UTIs. Patient also has had suspected diagnosis of a history of interstitial cystitis. No fever or chills. Patient has significant white cells and red cells on urinalysis. However there is no bacteria and negative nitrite. I'm not convinced this is infectious in etiology. I'm going to cover with antibiotics until she can get to urology. Ultrasound was normal. I'm going to add on a computed tomography scan as the patient has had melanoma in the past. Renal function is normal. Patient's computed tomography scan shows an intrarenal right kidney stone which is small and nonobstructing. Suspect this may not be related to the patient's symptomology. There is no evidence of tumor. We'll have the patient follow-up with urology. The case was discussed in detail with ED attending physician. Presentation, findings, treatment plan discussed in detail. Patient was told to return to the ER for any signs or symptoms worsen. Told to return immediately if any other problems arise. All questions answered. Treatment plan discussed. Patient in agreement Every effort has been made to ensure accuracy of this dictation. However, due to the limitations of electronic medical records and dictation devices, errors in charting still occur. Supervising physicians Dr. Maynard - Lab Data Result diagrams: 12/06/21 20:00 12/06/21 20:00 Lab Results 12/06/21 12/06/21 12/06/21 Range/Units 17:30 19:35 20:00 WBC 10.8 H (3.8-10.6) k/uL RBC 4.69 (3.80-5.40) m/uL Hgb 13.8 (11.4-16.0) gm/dL Hct 43.1 (34.0-46.0) % MCV 91.8 (80.0-100.0) fL MCH 29.4 (25.0-35.0) pg MCHC 32.0 (31.0-37.0) g/dL RDW 15.8 H (11.5-15.5) % Plt Count 305 (150-450) k/uL MPV 6.6 Neutrophils % 67 % Lymphocytes % 28 % Monocytes % 2 % Eosinophils % 2 % Basophils % 0 % Neutrophils # 7.2 (1.3-7.7) k/uL Lymphocytes # 3.0 (1.0-4.8) k/uL Monocytes # 0.2 (0-1.0) k/uL Eosinophils # 0.2 (0-0.7) k/uL Basophils # 0.0 (0-0.2) k/uL Sodium (137-145) mmol/L Potassium (3.5-5.1) mmol/L Chloride (98-107) mmol/L Carbon Dioxide (22-30) mmol/L Anion Gap mmol/L BUN (7-17) mg/dL Creatinine (0.52-1.04) mg/dL Est GFR (CKD-EPI)AfAm (>60 ml/min/1.73 sqM) Est GFR (CKD-EPI)NonAf (>60 ml/min/1.73 sqM) Glucose (74-99) mg/dL Calcium (8.4-10.2) mg/dL Total Bilirubin (0.2-1.3) mg/dL AST (14-36) U/L ALT (4-34) U/L Alkaline Phosphatase (38-126) U/L Total Protein (6.3-8.2) g/dL Albumin (3.5-5.0) g/dL Urine Color Yellow Urine Appearance Cloudy H (Clear) Urine pH 7.5 (5.0-8.0) Ur Specific [place] 1.010 (1.001-1.035) Urine Protein 1+ H (Negative) Urine Glucose (UA) Negative (Negative) Urine Ketones Negative (Negative) Urine Blood Large H (Negative) Urine Nitrite Negative (Negative) Urine Bilirubin Negative (Negative) Urine Urobilinogen <2.0 (<2.0) mg/dL Ur Leukocyte Esterase Large H (Negative) Urine RBC >182 H (0-5) /hpf Urine WBC >182 H (0-5) /hpf Ur Squamous Epith Cells 1 (0-4) /hpf Urine Mucus Rare H (None) /hpf Urine HCG, Qual Not Detected (Not Detectd) 12/06/21 Range/Units 20:00 WBC (3.8-10.6) k/uL RBC (3.80-5.40) m/uL Hgb (11.4-16.0) gm/dL Hct (34.0-46.0) % MCV (80.0-100.0) fL MCH (25.0-35.0) pg MCHC (31.0-37.0) g/dL RDW (11.5-15.5) % Plt Count (150-450) k/uL MPV Neutrophils % % Lymphocytes % % Monocytes % % Eosinophils % % Basophils % % Neutrophils # (1.3-7.7) k/uL Lymphocytes # (1.0-4.8) k/uL Monocytes # (0-1.0) k/uL Eosinophils # (0-0.7) k/uL Basophils # (0-0.2) k/uL Sodium 137 (137-145) mmol/L Potassium 4.1 (3.5-5.1) mmol/L Chloride 102 (98-107) mmol/L Carbon Dioxide 26 (22-30) mmol/L Anion Gap 9 mmol/L BUN 12 (7-17) mg/dL Creatinine 0.64 (0.52-1.04) mg/dL Est GFR (CKD-EPI)AfAm >90 (>60 ml/min/1.73 sqM) Est GFR (CKD-EPI)NonAf >90 (>60 ml/min/1.73 sqM) Glucose 96 (74-99) mg/dL Calcium 9.5 (8.4-10.2) mg/dL Total Bilirubin 0.3 (0.2-1.3) mg/dL AST 26 (14-36) U/L ALT 19 (4-34) U/L Alkaline Phosphatase 66 (38-126) U/L Total Protein 7.5 (6.3-8.2) g/dL Albumin 4.8 (3.5-5.0) g/dL Urine Color Urine Appearance (Clear) Urine pH (5.0-8.0) Ur Specific [place] (1.001-1.035) Urine Protein (Negative) Urine Glucose (UA) (Negative) Urine Ketones (Negative) Urine Blood (Negative) Urine Nitrite (Negative) Urine Bilirubin (Negative) Urine Urobilinogen (<2.0) mg/dL Ur Leukocyte Esterase (Negative) Urine RBC (0-5) /hpf Urine WBC (0-5) /hpf Ur Squamous Epith Cells (0-4) /hpf Urine Mucus (None) /hpf Urine HCG, Qual (Not Detectd) Disposition Clinical Impression: Hematuria, gross, Dysuria, Elevated blood pressure reading, Right renal stone Disposition: HOME SELF-CARE Condition: Good Instructions (If sedation given, give patient instructions): Hematuria (ED) Additional Instructions: EKG done at 1849 and reactive ED attending physician reveals sinus tachycardia with a rate of 106. Left axis deviation. Normal intervals. No evidence of significant ST elevation. Her computerized interpretation there is 0.5 mV of elevation which is nonspecific. I believe this is likely related to lead V3. Prescriptions: Nitrofurantoin Monohyd/M-Cryst [Macrobid] 100 mg PO Q12HR #14 cap Is patient prescribed a controlled substance at d/c from ED?: No Referrals: Susanna Casas MD [Primary Care Provider] - 1-2 days Reynaldo Porter MD [STAFF PHYSICIAN] - As Soon As Possible
--- NOTE | 2021-12-06 19:03 | US ---
EXAMINATION TYPE: US kidneys/renal and bladder DATE OF EXAM: 12/06/2021 COMPARISON: NONE CLINICAL HISTORY: Hematuria. Hx UTI. Patient presents with painful urination and hematuria EXAM MEASUREMENTS: Right Kidney: 10.8 x 4.4 x 4.3 cm Left Kidney: 10.3 x 5.0 x 4.0 cm Right Kidney: No hydronephrosis or masses seen Left Kidney: No hydronephrosis or masses seen Bladder: wnl Bilateral Jets seen: Yes IMPRESSION: Normal retroperitoneal sonogram exam. No evidence of renal mass or obstruction.
[2021-12-06] MEDS ORDERED: NITROFURANTOIN MONOHYD/M-CRYST 100 MG CAP PO STA (19:23)
--- NOTE | 2021-12-06 20:09 | CT ---
EXAMINATION TYPE: CT abdomen pelvis wo con DATE OF EXAM: 12/06/2021 COMPARISON: 01/18/2021 HISTORY: hematuria CT DLP: 457.9 mGycm Automated exposure control for dose reduction was used. Images obtained from the diaphragm to the floor the pelvis with no contrast. FINDINGS: The lung bases are clear. No pleural effusion. Heart size is normal. No pericardial effusion. Liver s pleen and stomach pancreas gallbladder appear normal. The bile ducts are not dilated. There is no adrenal mass. Kidneys have normal size and contour. There is no hydronephrosis. There is 2 mm calculus in the interpolar right kidney. Ureters are not dilated. There is no retroperitoneal ad enopathy. The bladder distends smoothly. There is no inguinal hernia. There is no free fluid in the p bart. Uterus is anteverted. There is no mesenteric edema. No ascites or free air. No bowel obstruction. Appendix is partly filled with air and appears normal. The lumbar vertebrae have normal alignment. No compression fracture. The bony pelvis is intact. Hip j oints appear intact. Uterus is anteverted. IMPRESSION: Negative CT scan of the abdomen and pelvis. Normal appendix. No adverse change. Nonobstructing small right renal calculus.
[2021-12-06 20:11] LABS: WBC 10.8 k/uL (3.8-10.6)
[2021-12-06 20:12] LABS: Basophils % (A) 0 %; Eosinophils # (A) 0.2 k/uL (0-0.7); Eosinophils % (A) 2 %; HCT 43.1 % (34.0-46.0); HGB 13.8 gm/dL (11.4-16.0); Lymphocytes % (A) 28 %; MCH 29.4 pg (25.0-35.0); MCV 91.8 fL (80.0-100.0); Mean Platelet Volume 6.6; Monocytes # (A) 0.2 k/uL (0-1.0); Monocytes % (A) 2 %; Neutrophils # (A) 7.2 k/uL (1.3-7.7); Neutrophils % (A) 67 %; Platelet Count 305 k/uL (150-450); RBC 4.69 m/uL (3.80-5.40); RDW 15.8 % (11.5-15.5)
[2021-12-06 20:29] LABS: ALT 19 U/L (4-34); AST 26 U/L (14-36); African American GFR (CKD) >90 (>60 ml/min/1.73 sqM); Albumin 4.8 g/dL (3.5-5.0); Alkaline Phosphatase 66 U/L (38-126); Anion Gap 9 mmol/L; Blood Urea Nitrogen 12 mg/dL (7-17); Calcium 9.5 mg/dL (8.4-10.2); Carbon Dioxide 26 mmol/L (22-30); Chloride 102 mmol/L (98-107); Glucose 96 mg/dL (74-99); Non-African American GFR(CKD) >90 (>60 ml/min/1.73 sqM); Potassium 4.1 mmol/L (3.5-5.1); Sodium 137 mmol/L (137-145); Total Bilirubin 0.3 mg/dL (0.2-1.3); Total Protein 7.5 g/dL (6.3-8.2)
== END 2021-12-06 20:56 | disposition home or self-care (01) ==
LOC: EC 16:40
DX: N20.0 Calculus of kidney (principal); R03.0 Elevated blood-pressure reading, without diagnosis of hypertension; J45.909 Unspecified asthma, uncomplicated; I10 Essential (primary) hypertension; K21.9 Gastro-esophageal reflux disease without esophagitis; Z88.8 Allergy status to other drugs, medicaments and biological substances; Z79.899 Other long term (current) drug therapy
CPT/HCPCS: 36415; 74176; 76770; 80053; 81001; 81025; 85025; 99284

== ENCOUNTER 2022-01-21 21:27 | Emergency (ER) | payer OTHER ==
[2022-01-21] MEDS ORDERED: KETOROLAC 15 MG/ML 1 ML VIAL IVP STA (22:12)
--- NOTE | 2022-01-21 22:15 | ED ---
Abdominal Pain HPI - General Chief Complaint: Abdominal Pain Stated Complaint: Lt Kidney Pain Time Seen by Provider: 01/21/22 21:48 Source: patient Mode of arrival: ambulatory Limitations: no limitations - History of Present Illness Initial Comments: This patient is a 41-year-old woman who complains of left flank plain going on for about 2 weeks. She states that a couple weeks prior to that she had been seen here for "Peeing blood" not associated with the left flank plain there has been some intermittent nausea. Currently no nausea. MD Complaint: flank pain Onset/Timin -: week(s) Location: L flank Radiation: none Migration to: no migration Severity: moderate Quality: aching Consistency: constant Improves With: nothing Worsens With: nothing Associated Symptoms: nausea - Related Data Home Medications Medication Instructions Recorded Confirmed OXcarbazepine [Trileptal] 900 mg PO HS 01/18/21 06/16/21 Albuterol Sulfate [Proair Hfa] 1 - 2 puff INHALATION Q6HR PRN 06/16/21 06/16/21 Fluticasone Nasal [place] [Flonase 2 spray EA NOSTRIL DAILY PRN 06/16/21 06/16/21 Nasal [place]] Ibuprofen [Motrin Ib] 800 mg PO DIRECTED 06/16/21 06/16/21 Omeprazole 40 mg PO BID 06/16/21 06/16/21 SUMAtriptan succinate [Imitrex] 100 mg IM DIRECTED PRN 06/16/21 06/16/21 Toradol (Unknown Dose) 1 dose PO DAILY 06/16/21 cloNIDine HCL [Catapres] 0.1 mg PO HS 06/16/21 06/16/21 tiZANidine [Zanaflex] 4 mg PO BID 06/16/21 06/16/21 Previous Rx's Medication Instructions Recorded Nitrofurantoin Monohyd/M-Cryst 100 mg PO Q12HR #14 cap 12/06/21 [Macrobid] HYDROcodone/APAP 5-325MG [[place] 1 tab PO Q4HR PRN 3 Days #12 tab 01/22/22 5-325] Allergies Allergy/AdvReac Type Severity Reaction Status Date / Time fludrocortisone Allergy Severe ELEVATED Verified 01/21/22 21:32 [From [place]] BLOODPRESSURE Review of Systems ROS Statement: Those systems with pertinent positive or pertinent negative responses have been documented in the HPI. ROS Other: All systems not noted in ROS Statement are negative. Constitutional: Denies: fever, chills Respiratory: Denies: cough, dyspnea Cardiovascular: Denies: chest pain, palpitations Gastrointestinal: Reports: as per HPI, abdominal pain, nausea. Denies: vomiting, diarrhea, constipation, melena, hematochezia Genitourinary: Reports: hematuria. Denies: dysuria, frequency Musculoskeletal: Denies: back pain Skin: Denies: rash Neurological: Denies: headache, weakness, numbness Past Medical History Past Medical History: Asthma, Cancer, GERD/Reflux, Hypertension, Seizure Dis order Additional Past Medical History / Comment(s): POTS, LAST SEIZURE MONTHS AGO, HX TIA 2014 WHICH "AFFECTED MEMORY & COGNITIVE FUNCTION", STOMACH ULCERS, NAUSEA & VOMITING., BACK PAIN, MELANOMA , RECENT ANEMIA AND LOW B-12, MIGRAINES History of Any Multi-Drug Resistant Organisms: None Reported Past Surgical History: Back Surgery Additional Past Surgical History / Comment(s): 14 LAPAROSCOPIES, AND 15 D & C'S- PATIENT WILL BRING LIST OF ADDITIONAL SURGERIES Past Anesthesia/Blood Transfusion Reactions: No Reported Reaction, Motion Sickness Additional Past Anesthesia/Blood Transfusion Reaction / Comment(s): MOTHER- PONV AND HEADACHES Past Psychological History: Anxiety Smoking Status: Never smoker Past Alcohol Use History: None Reported Past Drug Use History: Marijuana - Past Family History Mother Family Medical History: No Reported History General Exam Limitations: no limitations General appearance: alert, in no apparent distress Head exam: Present: atraumatic, normocephalic Eye exam: Present: normal appearance. Absent: scleral icterus, conjunctival injection ENT exam: Present: normal oropharynx Neck exam: Present: normal inspection Respiratory exam: Present: normal lung sounds bilaterally. Absent: respiratory distress, wheezes, rales, rhonchi, stridor Cardiovascular Exam: Present: regular rate, normal rhythm, normal heart sounds. Absent: systolic murmur, diastolic murmur, rubs, gallop GI/Abdominal exam: Present: soft. Absent: distended, tenderness, guarding, rebound, rigid, mass, pulsatile mass, hernia Extremities exam: Present: normal inspection, normal capillary refill. Absent: pedal edema, calf tenderness Back exam: Present: normal inspection, CVA tenderness (L). Absent: CVA tenderness (R) Neurological exam: Present: alert Skin exam: Present: warm, dry, intact, normal color. Absent: rash Course Vital Signs 01/21/22 21:29 Temperature 98 F Medical Decision Making - Lab Data Result diagrams: 01/21/22 23:15 01/21/22 23:15 Lab Results 01/21/22 01/21/22 01/21/22 Range/Units 23:15 23:15 23:15 WBC 8.2 (3.8-10.6) k/uL RBC 3.96 (3.80-5.40) m/uL Hgb 11.5 (11.4-16.0) gm/dL Hct 36.3 (34.0-46.0) % MCV 91.8 (80.0-100.0) fL MCH 29.0 (25.0-35.0) pg MCHC 31.6 (31.0-37.0) g/dL RDW 14.5 (11.5-15.5) % Plt Count 252 (150-450) k/uL MPV 7.5 Neutrophils % 48 % Lymphocytes % 42 % Monocytes % 5 % Eosinophils % 3 % Basophils % 1 % Neutrophils # 4.0 (1.3-7.7) k/uL Lymphocytes # 3.5 (1.0-4.8) k/uL Monocytes # 0.4 (0-1.0) k/uL Eosinophils # 0.3 (0-0.7) k/uL Basophils # 0.1 (0-0.2) k/uL Sodium (137-145) mmol/L Potassium (3.5-5.1) mmol/L Chloride (98-107) mmol/L Carbon Dioxide (22-30) mmol/L Anion Gap mmol/L BUN (7-17) mg/dL Creatinine (0.52-1.04) mg/dL Est GFR (CKD-EPI)AfAm (>60 ml/min/1.73 sqM) Est GFR (CKD-EPI)NonAf (>60 ml/min/1.73 sqM) Glucose (74-99) mg/dL Calcium (8.4-10.2) mg/dL Total Bilirubin (0.2-1.3) mg/dL AST (14-36) U/L ALT (4-34) U/L Alkaline Phosphatase (38-126) U/L Total Protein (6.3-8.2) g/dL Albumin (3.5-5.0) g/dL Amylase (30-110) U/L Lipase (23-300) U/L Urine Color Yellow Urine Appearance Clear (Clear) Urine pH 7.5 (5.0-8.0) Ur Specific [place] 1.007 (1.001-1.035) Urine Protein Negative (Negative) Urine Glucose (UA) Negative (Negative) Urine Ketones Negative (Negative) Urine Blood Negative (Negative) Urine Nitrite Negative (Negative) Urine Bilirubin Negative (Negative) Urine Urobilinogen <2.0 (<2.0) mg/dL Ur Leukocyte Esterase Negative (Negative) Urine HCG, Qual Not Detected (Not Detectd) 01/21/22 Range/Units 23:15 WBC (3.8-10.6) k/uL RBC (3.80-5.40) m/uL Hgb (11.4-16.0) gm/dL Hct (34.0-46.0) % MCV (80.0-100.0) fL MCH (25.0-35.0) pg MCHC (31.0-37.0) g/dL RDW (11.5-15.5) % Plt Count (150-450) k/uL MPV Neutrophils % % Lymphocytes % % Monocytes % % Eosinophils % % Basophils % % Neutrophils # (1.3-7.7) k/uL Lymphocytes # (1.0-4.8) k/uL Monocytes # (0-1.0) k/uL Eosinophils # (0-0.7) k/uL Basophils # (0-0.2) k/uL Sodium 137 (137-145) mmol/L Potassium 4.3 (3.5-5.1) mmol/L Chloride 103 (98-107) mmol/L Carbon Dioxide 30 (22-30) mmol/L Anion Gap 4 mmol/L BUN 4 L (7-17) mg/dL Creatinine 0.61 (0.52-1.04) mg/dL Est GFR (CKD-EPI)AfAm >90 (>60 ml/min/1.73 sqM) Est GFR (CKD-EPI)NonAf >90 (>60 ml/min/1.73 sqM) Glucose 96 (74-99) mg/dL Calcium 9.1 (8.4-10.2) mg/dL Total Bilirubin 0.2 (0.2-1.3) mg/dL AST 31 (14-36) U/L ALT 30 (4-34) U/L Alkaline Phosphatase 56 (38-126) U/L Total Protein 6.0 L (6.3-8.2) g/dL Albumin 3.9 (3.5-5.0) g/dL Amylase 52 (30-110) U/L Lipase 44 (23-300) U/L Urine Color Urine Appearance (Clear) Urine pH (5.0-8.0) Ur Specific [place] (1.001-1.035) Urine Protein (Negative) Urine Glucose (UA) (Negative) Urine Ketones (Negative) Urine Blood (Negative) Urine Nitrite (Negative) Urine Bilirubin (Negative) Urine Urobilinogen (<2.0) mg/dL Ur Leukocyte Esterase (Negative) Urine HCG, Qual (Not Detectd) Disposition Clinical Impression: Flank pain, Ovarian cyst Disposition: HOME SELF-CARE Condition: Good Instructions (If sedation given, give patient instructions): Flank Pain (ED), Ruptured Ovarian Cyst (ED) Prescriptions: HYDROcodone/APAP 5-325MG [[place] 5-325] 1 tab PO Q4HR PRN 3 Days #12 tab PRN Reason: Pain Is patient prescribed a controlled substance at d/c from ED?: Yes When asked, does pt state using other controlled substances?: No If prescribed controlled substance>3 days was MAPS reviewed?: Prescribed <3 Days If opioid is for acute pain is fill amount 7 days or less?: Yes If Rx opioid, was Start Talking consent form obtained?: Yes Referrals: None,Stated [Primary Care Provider] - 1-2 days Time of Disposition: 02:25
[2022-01-21 23:42] LABS: Basophils # (A) 0.1 k/uL (0-0.2); Basophils % (A) 1 %; Eosinophils # (A) 0.3 k/uL (0-0.7); Eosinophils % (A) 3 %; HCT 36.3 % (34.0-46.0); HGB 11.5 gm/dL (11.4-16.0); Lymphocytes # (A) 3.5 k/uL (1.0-4.8); Lymphocytes % (A) 42 %; MCHC 31.6 g/dL (31.0-37.0); MCV 91.8 fL (80.0-100.0); Mean Platelet Volume 7.5; Monocytes # (A) 0.4 k/uL (0-1.0); Monocytes % (A) 5 %; Neutrophils % (A) 48 %; Platelet Count 252 k/uL (150-450); RBC 3.96 m/uL (3.80-5.40); RDW 14.5 % (11.5-15.5); WBC 8.2 k/uL (3.8-10.6)
[2022-01-21 23:54] LABS: ALT 30 U/L (4-34); AST 31 U/L (14-36); African American GFR (CKD) >90 (>60 ml/min/1.73 sqM); Albumin 3.9 g/dL (3.5-5.0); Alkaline Phosphatase 56 U/L (38-126); Amylase 52 U/L (30-110); Anion Gap 4 mmol/L; Blood Urea Nitrogen 4 mg/dL (7-17); Calcium 9.1 mg/dL (8.4-10.2); Carbon Dioxide 30 mmol/L (22-30); Chloride 103 mmol/L (98-107); Glucose 96 mg/dL (74-99); Lipase 44 U/L (23-300); Non-African American GFR(CKD) >90 (>60 ml/min/1.73 sqM); Sodium 137 mmol/L (137-145); Total Bilirubin 0.2 mg/dL (0.2-1.3)
[2022-01-21 23:55] LABS: Appearance,Urine Clear (Clear); Bilirubin,Urine Negative (Negative); Blood,Urine Negative (Negative); Color,Urine Yellow; Glucose,Urine (UA) Negative (Negative); Ketones,Urine Negative (Negative); Leukocyte Esterase,Urine Negative (Negative); Nitrite,Urine Negative (Negative); PH, Urine 7.5 (5.0-8.0); Protein,Urine Negative (Negative); Specific Gravity,Urine 1.007 (1.001-1.035); Urobilinogen,Urine <2.0 mg/dL (<2.0)
[2022-01-22 00:07] LABS: Potassium 4.3 mmol/L (3.5-5.1)
[2022-01-22] MEDS ORDERED: MORPHINE SULFATE 4 MG/ML SYRINGE IV STA (01:15)
[2022-01-22] MEDS ORDERED: ONDANSETRON 4 MG/2 ML VIAL IVP PRN (01:26)
[2022-01-22] MEDS ORDERED: NALOXONE 0.4 MG/ML 1 ML VIAL IV PRN (01:26)
[2022-01-22] MEDS ORDERED: ACETAMINOPHEN TAB 325 MG TAB PO PRN (01:26)
[2022-01-22] MEDS ORDERED: MORPHINE SULFATE 4 MG/ML SYRINGE IV PRN (01:26)
[2022-01-22] MEDS ORDERED: SODIUM CHLORIDE 0.9% 1,000 ML IV SCH (01:30)
--- NOTE | 2022-01-22 02:30 | CT ---
EXAM: CT Abdomen and Pelvis Without Intravenous Contrast CLINICAL HISTORY: ITS.REASON CT Reason: LLQ pain, acute TECHNIQUE: Axial computed tomography images of the abdomen and pelvis without intravenous contrast. CTDI is 8.2 mGy and DLP is 436.8 mGy-cm. This CT exam was performed using one or more of the following dose reduction techniques: automated exposure control, adjustment of the mA and/or kV according to patient size, and/or use of iterative reconstruction technique. COMPARISON: No relevant prior studies available. FINDINGS: Limitations: Lack of intravenous contrast. Lung bases: No significant abnormality. ABDOMEN: Liver: No significant abnormality. Gallbladder and bile ducts: No significant abnormality. No calcified stones. Pancreas: No significant abnormality. Spleen: No significant abnormality. Adrenals: No significant abnormality. Kidneys and ureters: 1-2 mm nonobstructing bilateral renal calculi. No calcified ureteral calculi or hydronephrosis. Stomach and bowel: No significant abnormality. Bowel is nondilated. PELVIS: Appendix: No findings to suggest acute appendicitis. Bladder: No significant abnormality. No calcified stones. Reproductive: Unremarkable as visualized. ABDOMEN and PELVIS: Intraperitoneal space: Trace complex pelvic free fluid. Bones/joints: No acute fracture or malalignment. Soft tissues: No significant abnormality. Vasculature: No significant abnormality. No abdominal aortic aneurysm. Lymph nodes: No significant abnormality. IMPRESSION: Trace complex pelvic free fluid likely represents blood products which may be related to a recently ruptured cyst. Infection is felt to be less likely.
[2022-01-22 03:58] VITALS: BP 124/58; PULSE 78; RESP 18; TEMP 98.2
[2022-01-22] MEDS ORDERED: FAMOTIDINE 20 MG TAB PO SCH (09:00)
== END 2022-01-22 03:58 | disposition home or self-care (01) ==
LOC: EC 21:27
DX: N83.209 Unspecified ovarian cyst, unspecified side (principal); J45.909 Unspecified asthma, uncomplicated; K21.9 Gastro-esophageal reflux disease without esophagitis; Z79.83 Long term (current) use of bisphosphonates; Z88.8 Allergy status to other drugs, medicaments and biological substances
CPT/HCPCS: 36415; 80053; 82150; 83690; 85025; 81003; 81025; 74176; 99284; 96374; 96375; J2270; J1885

== ENCOUNTER 2022-02-03 21:59 | Emergency (ER) | payer OTHER ==
[2022-02-03 22:09] VITALS: TEMP 97.8
[2022-02-03] MEDS ORDERED: SODIUM CHLORIDE 0.9% 1,000 ML IV ONE (22:12)
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
[2022-02-04 00:50] LABS: Basophils # (A) 0.1 k/uL (0-0.2); Basophils % (A) 1 %; Eosinophils # (A) 0.1 k/uL (0-0.7); Eosinophils % (A) 1 %; HCT 37.1 % (34.0-46.0); Lymphocytes # (A) 2.3 k/uL (1.0-4.8); Lymphocytes % (A) 25 %; MCH 29.9 pg (25.0-35.0); MCHC 32.4 g/dL (31.0-37.0); MCV 92.3 fL (80.0-100.0); Mean Platelet Volume 6.9; Monocytes # (A) 0.4 k/uL (0-1.0); Monocytes % (A) 4 %; Neutrophils # (A) 6.2 k/uL (1.3-7.7); Neutrophils % (A) 67 %; Platelet Count 307 k/uL (150-450); RBC 4.01 m/uL (3.80-5.40); RDW 15.2 % (11.5-15.5); WBC 9.2 k/uL (3.8-10.6)
[2022-02-04 01:06] LABS: ALT 30 U/L (4-34); AST 31 U/L (14-36); Acetaminophen <10.0 ug/mL; African American GFR (CKD) >90 (>60 ml/min/1.73 sqM); Albumin 4.3 g/dL (3.5-5.0); Alkaline Phosphatase 64 U/L (38-126); Anion Gap 6 mmol/L; Blood Urea Nitrogen 6 mg/dL (7-17); Carbon Dioxide 26 mmol/L (22-30); Chloride 105 mmol/L (98-107); Glucose 81 mg/dL (74-99); Non-African American GFR(CKD) >90 (>60 ml/min/1.73 sqM); Potassium 4.3 mmol/L (3.5-5.1); Salicylate <1.0 mg/dL; Sodium 137 mmol/L (137-145); Total Bilirubin 0.1 mg/dL (0.2-1.3); Total Protein 6.6 g/dL (6.3-8.2)
[2022-02-04 08:05] VITALS: BP 142/84; PULSE 89; RESP 18
== END 2022-02-04 08:05 | disposition home or self-care (01) ==
LOC: EC 21:59
DX: R41.82 Altered mental status, unspecified (principal); J45.909 Unspecified asthma, uncomplicated; I10 Essential (primary) hypertension; F17.200 Nicotine dependence, unspecified, uncomplicated; Z88.8 Allergy status to other drugs, medicaments and biological substances
CPT/HCPCS: 36415; 70450; 72125; 80053; 80143; 80179; 82075; 82140; 85025; 99285

== ENCOUNTER 2022-02-05 15:32 | Observation (INO) | payer OTHER ==
[2022-02-05] MEDS ORDERED: THIAMINE 100 MG/ML 2 ML VIAL IVP STA (17:03)
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
[2022-02-05 18:44] LABS: Basophils % (A) 0 %; Eosinophils % (A) 0 %; HCT 37.9 % (34.0-46.0); HGB 12.2 gm/dL (11.4-16.0); Lymphocytes # (A) 1.1 k/uL (1.0-4.8); Lymphocytes % (A) 14 %; MCH 29.6 pg (25.0-35.0); MCHC 32.3 g/dL (31.0-37.0); MCV 91.7 fL (80.0-100.0); Mean Platelet Volume 6.9; Monocytes # (A) 0.2 k/uL (0-1.0); Monocytes % (A) 3 %; Neutrophils # (A) 6.6 k/uL (1.3-7.7); Neutrophils % (A) 82 %; Platelet Count 315 k/uL (150-450); RBC 4.14 m/uL (3.80-5.40); RDW 14.8 % (11.5-15.5); WBC 8.1 k/uL (3.8-10.6)
[2022-02-05] MEDS: SODIUM CHLORIDE 0.9% 1,000 ML IV SCH (18:45)
[2022-02-05] MEDS ORDERED: HYDROcodone/APAP 5-325MG 1 EACH TAB PO STA (18:58)
[2022-02-05 19:01] LABS: ALT 40 U/L (4-34); AST 43 U/L (14-36); Acetaminophen <10.0 ug/mL; African American GFR (CKD) >90 (>60 ml/min/1.73 sqM); Albumin 4.4 g/dL (3.5-5.0); Alcohol <10 mg/dL; Alkaline Phosphatase 69 U/L (38-126); Anion Gap 7 mmol/L; Blood Urea Nitrogen 10 mg/dL (7-17); Calcium 9.1 mg/dL (8.4-10.2); Carbon Dioxide 25 mmol/L (22-30); Chloride 105 mmol/L (98-107); Creatine Kinase 115 U/L (30-135); Glucose 86 mg/dL (74-99); Magnesium 1.8 mg/dL (1.6-2.3); Non-African American GFR(CKD) >90 (>60 ml/min/1.73 sqM); Potassium 4.2 mmol/L (3.5-5.1); Salicylate <1.0 mg/dL; Sodium 137 mmol/L (137-145); Total Bilirubin 0.2 mg/dL (0.2-1.3); Total Protein 6.8 g/dL (6.3-8.2)
[2022-02-05] MEDS ORDERED: MELATONIN 3 MG TABLET PO PRN (19:37)
[2022-02-05] MEDS ORDERED: ONDANSETRON 4 MG/2 ML VIAL IVP PRN (19:37)
[2022-02-05] MEDS ORDERED: ALPRAZolam 0.25 MG TAB PO PRN (19:37)
[2022-02-05] MEDS ORDERED: ACETAMINOPHEN TAB 325 MG TAB PO PRN (19:37)
[2022-02-05] MEDS ORDERED: NALOXONE 0.4 MG/ML 1 ML VIAL IV PRN (19:37)
[2022-02-05 20:04] LABS: T4, Free (Free Thyroxine) 0.99 ng/dL (0.78-2.19)
[2022-02-05] MEDS: HYDROcodone/APAP 5-325MG 1 EACH TAB PO PRN (21:28)
[2022-02-05] MEDS: KETOROLAC 15 MG/ML 1 ML VIAL IVP PRN (22:15)
[2022-02-06] MEDS: SODIUM CHLORIDE 0.9% 1,000 ML IV SCH ×3 (00:03→19:11)
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
[2022-02-06] MEDS: KETOROLAC 15 MG/ML 1 ML VIAL IVP PRN ×3 (04:29→19:07)
[2022-02-06 12:21] LABS: Appearance,Urine Clear (Clear); Bilirubin,Urine Negative (Negative); Blood,Urine Negative (Negative); Color,Urine Yellow; Glucose,Urine (UA) Negative (Negative); Ketones,Urine 1+ (Negative); Leukocyte Esterase,Urine Negative (Negative); Nitrite,Urine Negative (Negative); Protein,Urine Negative (Negative); Specific Gravity,Urine 1.018 (1.001-1.035); Urobilinogen,Urine <2.0 mg/dL (<2.0)
[2022-02-06 12:55] LABS: Amphetamine Screen,Urine Not Detected (NotDetected); Barbiturate Screen,Urine Not Detected (NotDetected); Benzodiazepines Screen,Urine Detected (NotDetected); Cocaine Screen,Urine Not Detected (NotDetected); Methadone Screen, Urine Not Detected (NotDetected); Opiate Screen,Urine Detected (NotDetected); Oxycodone Screen, Urine Not Detected (NotDetected); Phencyclidine Screen,Urine Not Detected (NotDetected); Tricyclic Antidepressant,Urine Not Detected (NotDetected); Urn Cannabinoid Scrn Detected (NotDetected)
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
[2022-02-06] MEDS: HYDROcodone/APAP 5-325MG 1 EACH TAB PO PRN ×2 (17:14→21:25)
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
[2022-02-06] MEDS ORDERED: OXcarbazepine 300 MG TAB PO SCH ×2 (21:00)
[2022-02-07] MEDS: SODIUM CHLORIDE 0.9% 1,000 ML IV SCH (00:32)
[2022-02-07] MEDS: HYDROcodone/APAP 5-325MG 1 EACH TAB PO PRN ×4 (01:55→14:00)
[2022-02-07] MEDS: KETOROLAC 15 MG/ML 1 ML VIAL IVP PRN (08:58)
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
[2022-02-07 14:17] VITALS: BP 157/95; PULSE 113; RESP 18; TEMP 98.5
== END 2022-02-07 14:35 | disposition home or self-care (01) ==
LOC: EC 15:32 → 6NMEDSUR 20:12
PROVIDERS: ADMIT Internal Medicine; ATTEND Internal Medicine
DX: R41.3 Other amnesia (principal); G40.A09 Absence epileptic syndrome, not intractable, without status epilepticus; I69.311 Memory deficit following cerebral infarction; F41.9 Anxiety disorder, unspecified; I10 Essential (primary) hypertension; G89.29 Other chronic pain; J45.909 Unspecified asthma, uncomplicated; K21.9 Gastro-esophageal reflux disease without esophagitis; F17.210 Nicotine dependence, cigarettes, uncomplicated; G43.909 Migraine, unspecified, not intractable, without status migrainosus; D64.9 Anemia, unspecified; I49.8 Other specified cardiac arrhythmias; M54.50 Low back pain, unspecified; F32.9 Major depressive disorder, single episode, unspecified; F43.0 Acute stress reaction; F11.10 Opioid abuse, uncomplicated; T42.1X6A Underdosing of iminostilbenes, initial encounter; Z91.128 Patient's intentional underdosing of medication regimen for other reason; Z91.14 Patient's other noncompliance with medication regimen; Z71.51 Drug abuse counseling and surveillance of drug abuser; Z71.9 Counseling, unspecified; Z91.51 Personal history of suicidal behavior; Z87.11 Personal history of peptic ulcer disease; Z85.820 Personal history of malignant melanoma of skin; Z88.8 Allergy status to other drugs, medicaments and biological substances
CPT/HCPCS: 96376 ×2; 96361; 96375 ×2; 96374; 99285; 36415; 95819; 93005; 84439; 80053; 84443; 80183; 82140; 82550; 83735; 84484; 85025; 81003; 81025; 80306; 80143; 80320; 80179; 71045; 70450; G0378 ×3; J3411; J2405; J1885 ×3

== ENCOUNTER 2022-02-18 17:15 | Emergency (ER) | payer OTHER ==
[2022-02-18 17:22] VITALS: TEMP 98.7
[2022-02-18] MEDS ORDERED: SODIUM CHLORIDE 0.9% 1,000 ML IV STA (17:24)
--- NOTE | 2022-02-18 17:24 | ED ---
General Adult HPI - General Chief complaint: Chest Pain Stated complaint: tachycardia Time Seen by Provider: 02/18/22 17:20 Source: patient, EMS Mode of arrival: EMS Limitations: no limitations - History of Present Illness Initial comments: Patient presents to the ED by ambulance for evaluation. Patient states that she developed rapid heart palpitations, diffuse chest pain and dyspnea about a half an hour prior to ED arrival while laying down in bed. Patient admits to being under a lot of stress recently. Patient denies trauma or injury, fever or chills, radiation of her pain, headache, focal numbness/weakness/neuro deficit, neck/arm/jaw/back pain, pleuritic pain, cough or cold symptoms, dizziness/syncope, abdominal pain, nausea/vomiting/diaphoresis, diarrhea, bloody or melanotic stool, dysuria or urinary symptoms, leg or calf swelling or pain, or any other symptoms or complaints. Patient denies illicit drug use. Patient states that she is not vaccinated for Covid. - Related Data Home Medications Medication Instructions Recorded Confirmed Acetaminophen/Diphenhydramine 1 tab PO HS PRN 02/05/22 02/18/22 [Tylenol PM 500-25mg] HYDROcodone/APAP 5-325MG [[place] 1 tab PO BID PRN 02/18/22 02/18/22 5-325] Ibuprofen [Motrin] 600 mg PO Q8HR PRN 02/18/22 02/18/22 OXcarbazepine [Trileptal] 900 mg PO HS 02/18/22 02/18/22 tiZANidine [Zanaflex] 4 mg PO TID PRN 02/18/22 02/18/22 Allergies Allergy/AdvReac Type Severity Reaction Status Date / Time fludrocortisone Allergy Severe ELEVATED Verified 02/18/22 17:24 [From [facility]] BLOODPRESSURE Review of Systems ROS Statement: Those systems with pertinent positive or pertinent negative responses have been documented in the HPI. ROS Other: All systems not noted in ROS Statement are negative. Past Medical History Past Medical History: Asthma, Cancer, GERD/Reflux, Hypertension, Seizure Disorder Additional Past Medical History / Comment(s): POTS, LAST SEIZURE MONTHS AGO, HX TIA 2014 WHICH "AFFECTED MEMORY & COGNITIVE FUNCTION", STOMACH ULCERS, NAUSEA & VOMITING., BACK PAIN, MELANOMA , RECENT ANEMIA AND LOW B-12, MIGRAINES History of Any Multi-Drug Resistant Organisms: None Reported Past Surgical History: Back Surgery Additional Past Surgical History / Comment(s): 14 LAPAROSCOPIES, AND 15 D & C'S- PATIENT WILL BRING LIST OF ADDITIONAL SURGERIES Past Anesthesia/Blood Transfusion Reactions: No Reported Reaction, Motion Sickness Additional Past Anesthesia/Blood Transfusion Reaction / Comment(s): MOTHER- PONV AND HEADACHES Past Psychological History: Anxiety Smoking Status: Current every day smoker Past Alcohol Use History: None Reported Past Drug Use History: Marijuana - Past Family History Mother Family Medical History: No Reported History General Exam Limitations: no limitations General appearance: alert, in no apparent distress Head exam: Present: atraumatic, normocephalic Eye exam: Present: normal appearance, EOMI ENT exam: Present: mucous membranes moist Neck exam: Present: other (Trachea is in midline) Respiratory exam: Present: normal lung sounds bilaterally. Absent: respiratory distress, wheezes, rales, rhonchi, stridor, chest wall tenderness Cardiovascular Exam: Present: normal rhythm, tachycardia, normal heart sounds, other (Normal radial pulses bilaterally) GI/Abdominal exam: Present: soft. Absent: distended, tenderness, guarding Extremities exam: Present: other (Negative Homans sign bilaterally). Absent: tenderness, pedal edema, calf tenderness Neurological exam: Present: alert, oriented X3. Absent: motor sensory deficit Psychiatric exam: Present: anxious Skin exam: Present: warm, dry, intact, normal color Course Vital Signs 02/18/22 02/18/22 02/18/22 17:20 17:22 18:47 Temperature 98.7 F Pulse Rate 102 H 109 H Pulse Rate [ 104 H Pulse Oximetery ] Respiratory 20 20 Rate Blood Pressure 116/60 107/53 O2 Sat by Pulse 97 98 Oximetry 02/18/22 20:57 Temperature Pulse Rate 105 H Pulse Rate [ Pulse Oximetery ] Respiratory 18 Rate Blood Pressure 105/66 O2 Sat by Pulse 98 Oximetry - Reevaluation(s) Reevaluation #1: 02/18/22 22:12 Patient states that her symptoms have now improved. Patient denies development of any new symptoms while in the ED. Patient remains alert and breathing comfortably with a normal room air oxygen saturation. Patient remains in borderline sinus tachycardia on the property assessment monitor. Patient's daughter and boyfriend are currently in the ED with the patient, and they have pulled me aside to tell me that the patient has a history of narcotic drug abuse, which they feel is contributing to the patient's symptoms. Patient is aware of her test results, and she feels comfortable being discharged home at this time. Sherie peggy was counseled about chest pain, dyspnea and palpitations. Patient was clearly explained return and follow-up instructions, and she was instructed to follow up closely with a primary care provider. Patient feels comfortable this plan. EKG Findings - EKG Comments: EKG Findings:: Sinus tachycardia, ventricular rate of 104 bpm, normal VA and QRS intervals, normal QT interval, normal axis, nonspecific ST and T-wave abnormality Medical Decision Making - Medical Decision Making Patient's chest x-ray and labs are fairly unremarkable, including a negative d- dimer and negative troponin. Patient is breathing comfortably in the ED with a normal room air oxygen saturation. I do not suspect an emergent medical condition at this time. Will discharge patient home at this time. Patient feels comfortable with this plan. - Lab Data Result diagrams: 02/18/22 17:35 02/18/22 17:35 Lab Results 02/18/22 02/18/22 02/18/22 Range/Units 17:35 17:35 17:35 WBC 8.0 (3.8-10.6) k/uL RBC 4.39 (3.80-5.40) m/uL Hgb 13.1 (11.4-16.0) gm/dL Hct 40.3 (34.0-46.0) % MCV 91.7 (80.0-100.0) fL MCH 29.8 (25.0-35.0) pg MCHC 32.5 (31.0-37.0) g/dL RDW 15.7 H (11.5-15.5) % Plt Count 410 (150-450) k/uL MPV 7.4 Neutrophils % 67 % Lymphocytes % 28 % Monocytes % 3 % Eosinophils % 1 % Basophils % 0 % Neutrophils # 5.4 (1.3-7.7) k/uL Lymphocytes # 2.3 (1.0-4.8) k/uL Monocytes # 0.2 (0-1.0) k/uL Eosinophils # 0.1 (0-0.7) k/uL Basophils # 0.0 (0-0.2) k/uL PT 11.2 (9.0-12.0) sec INR 1.0 (<1.2) APTT 24.9 (22.0-30.0) sec D-Dimer 0.33 (<0.60) mg/L FEU Sodium 138 (137-145) mmol/L Potassium 3.3 L (3.5-5.1) mmol/L Chloride 110 H (98-107) mmol/L Carbon Dioxide 21 L (22-30) mmol/L Anion Gap 7 mmol/L BUN 17 (7-17) mg/dL Creatinine 0.77 (0.52-1.04) mg/dL Est GFR (CKD-EPI)AfAm >90 (>60 ml/min/1.73 sqM) Est GFR (CKD-EPI)NonAf >90 (>60 ml/min/1.73 sqM) Glucose 101 H (74-99) mg/dL Calcium 9.3 (8.4-10.2) mg/dL Magnesium 1.5 L (1.6-2.3) mg/dL Total Bilirubin 0.3 (0.2-1.3) mg/dL AST 27 (14-36) U/L ALT 28 (4-34) U/L Alkaline Phosphatase 43 (38-126) U/L Troponin I (0.000-0.034) ng/mL NT-Pro-B Natriuret Pep pg/mL Total Protein 6.0 L (6.3-8.2) g/dL Albumin 3.9 (3.5-5.0) g/dL HCG, Qual Not Detected Coronavirus (PCR) (Not Detectd) 02/18/22 02/18/22 02/18/22 Range/Units 17:35 17:35 18:04 WBC (3.8-10.6) k/uL RBC (3.80-5.40) m/uL Hgb (11.4-16.0) gm/dL Hct (34.0-46.0) % MCV (80.0-100.0) fL MCH (25.0-35.0) pg MCHC (31.0-37.0) g/dL RDW (11.5-15.5) % Plt Count (150-450) k/uL MPV Neutrophils % % Lymphocytes % % Monocytes % % Eosinophils % % Basophils % % Neutrophils # (1.3-7.7) k/uL Lymphocytes # (1.0-4.8) k/uL Monocytes # (0-1.0) k/uL Eosinophils # (0-0.7) k/uL Basophils # (0-0.2) k/uL PT (9.0-12.0) sec INR (<1.2) APTT (22.0-30.0) sec D-Dimer (<0.60) mg/L FEU Sodium (137-145) mmol/L Potassium (3.5-5.1) mmol/L Chloride (98-107) mmol/L Carbon Dioxide (22-30) mmol/L Anion Gap mmol/L BUN (7-17) mg/dL Creatinine (0.52-1.04) mg/dL Est GFR (CKD-EPI)AfAm (>60 ml/min/1.73 sqM) Est GFR (CKD-EPI)NonAf (>60 ml/min/1.73 sqM) Glucose (74-99) mg/dL Calcium (8.4-10.2) mg/dL Magnesium (1.6-2.3) mg/dL Total Bilirubin (0.2-1.3) mg/dL AST (14-36) U/L ALT (4-34) U/L Alkaline Phosphatase (38-126) U/L Troponin I <0.012 (0.000-0.034) ng/mL NT-Pro-B Natriuret Pep 272 pg/mL Total Protein (6.3-8.2) g/dL Albumin (3.5-5.0) g/dL HCG, Qual Coronavirus (PCR) Not Detected (Not Detectd) - Radiology Data Chest x-ray: No acute cardiopulmonary disease/process. Disposition Clinical Impression: Chest pain, Palpitations, Dyspnea Disposition: HOME SELF-CARE Condition: Stable Instructions (If sedation given, give patient instructions): Chest Pain (ED), Heart Palpitations (ED), Dyspnea (ED) Additional Instructions: Return to the ER immediately should you develop new or worsening pain, increased shortness of breath, vomiting, a fever, feeling dizzy or faint, or new or worsening symptoms. Follow up closely with your primary care provider. Is patient prescribed a controlled substance at d/c from ED?: No Referrals: None,Stated [Primary Care Provider] - 1-2 days Timothy Colbert MD [STAFF PHYSICIAN] - 1-2 days Time of Disposition: 22:17
[2022-02-18] MEDS ORDERED: LORazepam 2 MG/ML INJ IV STA (17:32)
[2022-02-18] MEDS ORDERED: ASPIRIN 81 MG PO STA (17:35)
[2022-02-18 18:13] LABS: Basophils % (A) 0 %; Eosinophils # (A) 0.1 k/uL (0-0.7); Eosinophils % (A) 1 %; HCT 40.3 % (34.0-46.0); HGB 13.1 gm/dL (11.4-16.0); Lymphocytes # (A) 2.3 k/uL (1.0-4.8); Lymphocytes % (A) 28 %; MCH 29.8 pg (25.0-35.0); MCHC 32.5 g/dL (31.0-37.0); MCV 91.7 fL (80.0-100.0); Mean Platelet Volume 7.4; Monocytes # (A) 0.2 k/uL (0-1.0); Monocytes % (A) 3 %; Neutrophils # (A) 5.4 k/uL (1.3-7.7); Neutrophils % (A) 67 %; Platelet Count 410 k/uL (150-450); RBC 4.39 m/uL (3.80-5.40); RDW 15.7 % (11.5-15.5)
--- NOTE | 2022-02-18 18:20 | XR ---
EXAMINATION TYPE: XR chest 2V DATE OF EXAM: 02/18/2022 6:16 PM COMPARISON: Chest radiograph 02/05/2022. TECHNIQUE: XR chest 2V Frontal and lateral views of the chest. CLINICAL INDICATION:Female, 41 years old with history of Chest Pain; FINDINGS: Lungs/Pleura: There is no evidence of pleural effusion, focal consolidation, or pneumothorax. Pulmonary vascularity: Unremarkable. Heart/mediastinum: Cardiomediastinal silhouette is unremarkable. Musculoskeletal: No acute osseous pathology. IMPRESSION: No acute cardiopulmonary disease/process.
[2022-02-18 18:24] LABS: Partial Thromboplastin Time 24.9 sec (22.0-30.0); Prothrombin Time 11.2 sec (9.0-12.0)
[2022-02-18 18:25] LABS: ALT 28 U/L (4-34); AST 27 U/L (14-36); African American GFR (CKD) >90 (>60 ml/min/1.73 sqM); Albumin 3.9 g/dL (3.5-5.0); Alkaline Phosphatase 43 U/L (38-126); Anion Gap 7 mmol/L; Blood Urea Nitrogen 17 mg/dL (7-17); Calcium 9.3 mg/dL (8.4-10.2); Carbon Dioxide 21 mmol/L (22-30); Chloride 110 mmol/L (98-107); Glucose 101 mg/dL (74-99); Magnesium 1.5 mg/dL (1.6-2.3); Non-African American GFR(CKD) >90 (>60 ml/min/1.73 sqM); Potassium 3.3 mmol/L (3.5-5.1); Sodium 138 mmol/L (137-145); Total Bilirubin 0.3 mg/dL (0.2-1.3)
[2022-02-18 18:45] LABS: HCG,Qualitative Serum Not Detected
[2022-02-18] MEDS ORDERED: MORPHINE SULFATE 4 MG/ML SYRINGE IVP STA (20:42)
[2022-02-18 20:58] VITALS: BP 105/66; PULSE 105; RESP 18
== END 2022-02-18 22:47 | disposition home or self-care (01) ==
LOC: EC 17:15
DX: R06.00 Dyspnea, unspecified (principal); R00.2 Palpitations; R07.89 Other chest pain; F17.200 Nicotine dependence, unspecified, uncomplicated; I10 Essential (primary) hypertension; J45.909 Unspecified asthma, uncomplicated; Z86.73 Personal history of transient ischemic attack (TIA), and cerebral infarction without residual deficits; Z88.8 Allergy status to other drugs, medicaments and biological substances; Z20.822 Contact with and (suspected) exposure to COVID-19; Z79.899 Other long term (current) drug therapy
CPT/HCPCS: 36415; 93005; 85379; 83880; 80053; 83735; 84484; 85025; 85610; 85730; 84703; 87635; 71046; 99285; 96374; 96361; 96375; J2060; J2270

== ENCOUNTER 2023-10-08 19:39 | Emergency (ER) | payer OTHER ==
--- NOTE | 2023-10-08 19:56 | ED ---
Headache HPI - General Mode of arrival: ambulatory Limitations: no limitations <Surekha Alicea - Last Filed: 10/08/23 19:56> <Sanchez Quan - Last Filed: 10/08/23 23:02> - General Chief Complaint: Headache Stated Complaint: Head pain Time Seen by Provider: 10/08/23 19:56 - History of Present Illness Initial Comments: 43-year-old female presenting with chief complaint of headache. Patient has had a left-sided frontal pressure-like pain for the last 3 weeks. She states that it is worse when she coughs or sneezes (Surekha Alicea) 43-year-old female with a past medical history significant for pseudotumor presenting to the ED with a chief complaint of headache. Patient reports earlier in the month tested positive for influenza. Reports for the last few weeks URI symptoms mostly improving however states that she still had some persistent headache and congestion. States headache especially worse with co ughing. No fever or chills. No chest pain or shortness of breath. No other complaints at this time. (Sanchez Quan) - Related Data Home Medications Medication Instructions Recorded Confirmed Acetaminophen/Diphenhydramine 1 tab PO HS PRN 02/05/22 02/18/22 [Tylenol PM 500-25mg] HYDROcodone/APAP 5-325MG [[place] 1 tab PO BID PRN 02/18/22 02/18/22 5-325] Ibuprofen [Motrin] 600 mg PO Q8HR PRN 02/18/22 02/18/22 OXcarbazepine [Trileptal] 900 mg PO HS 02/18/22 02/18/22 tiZANidine [Zanaflex] 4 mg PO TID PRN 02/18/22 02/18/22 Previous Rx's Medication Instructions Recorded Amoxic-Pot Clav 875-125Mg 1 tab PO Q12HR 7 Days #14 tab 10/08/23 [Augmentin 875-125] Fluticasone Nasal [place] [Flonase 2 spr EA NOSTRIL DAILY #16 gm 10/08/23 Nasal Raymond] Phenylephrine/Dm/Acetaminop/GG 1 each PO DIRECTED PRN #16 10/08/23 [Mucinex Sinus-Max Pressure-Cgh] tablet Allergies Allergy/AdvReac Type Severity Reaction Status Date / Time fludrocortisone Allergy Severe ELEVATED Verified 10/08/23 19:52 [From [facility]] BLOODPRESSURE Review of Systems ROS Other: All systems not noted in ROS Statement are negative. <Surekha Alicea - Last Filed: 10/08/23 19:56> ROS Other: All systems not noted in ROS Statement are negative. <Sanchez Quan - Last Filed: 10/08/23 23:02> ROS Statement: Those systems with pertinent positive or pertinent negative responses have been documented in the HPI. Past Medical History Past Medical History: Asthma, Cancer, GERD/Reflux, Hypertension, Seizure Disorder Additional Past Medical History / Comment(s): POTS, LAST SEIZURE MONTHS AGO, HX TIA 2014 WHICH "AFFECTED MEMORY & COGNITIVE FUNCTION", STOMACH ULCERS, NAUSEA & VOMITING., BACK PAIN, MELANOMA , RECENT ANEMIA AND LOW B-12, MIGRAINES History of Any Multi-Drug Resistant Organisms: None Reported Past Surgical History: Back Surgery Additional Past Surgical History / Comment(s): 14 LAPAROSCOPIES, AND 15 D & C'S- PATIENT WILL BRING LIST OF ADDITIONAL SURGERIES Past Anesthesia/Blood Transfusion Reactions: No Reported Reaction, Motion Sickness Additional Past Anesthesia/Blood Transfusion Reaction / Comment(s): MOTHER- PONV AND HEADACHES Past Psychological History: Anxiety Smoking Status: Current every day smoker Past Alcohol Use History: None Reported Past Drug Use History: Marijuana - Past Family History Mother Family Medical History: No Reported History <Surekha Alicea - Last Filed: 10/08/23 19:56> General Exam Limitations: no limitations <Surekha Alicea - Last Filed: 10/08/23 19:56> General appearance: alert, in no apparent distress Eye exam: Present: normal appearance ENT exam: Present: other (Tenderness to palpation over the left frontal sinus. No overlying skin changes.) Neck exam: Present: normal inspection Respiratory exam: Present: normal lung sounds bilaterally Cardiovascular Exam: Present: regular rate, normal rhythm GI/Abdominal exam: Present: soft Back exam: Present: normal inspection Neurological exam: Present: alert, oriented X3 Skin exam: Present: warm, dry <Sanchez Quan - Last Filed: 10/08/23 23:02> - General Exam Comments Initial Comments: Visual Physical Exam Vital signs reviewed General: Well-appearing, nontoxic, no acute distress. Head: Normocephalic, atraumatic Eyes: PERRLA, EOMI ENT: Airway patent Chest: Nonlabored breathing Skin: No visual rash, normal skin tone Neuro: Alert and oriented 3 Musculoskeletal: No gross abnormalities (Surekha Alicea) Course Vital Signs 10/08/23 19:48 Temperature 98.5 F Pulse Rate 98 Respiratory 18 Rate Blood Pressure 150/92 O2 Sat by Pulse 100 Oximetry Medical Decision Making <Surekha Alicea - Last Filed: 10/08/23 19:56> <Sanchez Quan - Last Filed: 10/08/23 23:02> - Medical Decision Making I performed the quick note portion of this visit, electronically signed Surekha Alicea PA-C (Surekha Alicea) Was pt. sent in by a medical professional or institution ([facility], ASSISTANT PROJECT ENGINEER, urgent care, hospital, or halfway...) When possible be specific @ -No Did you speak to anyone other than the patient for history (EMS, parent, family, police, friend...)? What history was obtained from this source @ -No Did you review nursing and triage notes (agree or disagree)? Why? @ -I reviewed and agree with nursing and triage notes Were old charts reviewed (outside hosp., previous admission, EMS record, old EKG, old radiological studies, urgent care reports/EKG's, halfway records)? Report findings @ -No old charts were reviewed Differential Diagnosis (chest pain, altered mental status, abdominal pain women, abdominal pain men, vaginal bleeding, weakness, fever, dyspnea, syncope, headache, dizziness, GI bleed, back pain, seizure, CVA, palpatations, mental health, musculoskeletal)? @ -Differential Headache: Migraine, tension, cluster, carbon monoxide, central venous thrombosis, pension karma temporal arteritis, acute closure glaucoma, intercranial hemorrhage, mastoiditis, sinusitis, head injury, this is not meant to be an all-inclusive list. EKG interpreted by me (3pts min.). @ -None X-rays interpreted by me (1pt min.). @ -None done CT interpreted by me (1pt min.). @ -CT brain interpreted me showing no evidence of acute finding. U/S interpreted by me (1pt. min.). @ -None done What testing was considered but not performed or refused? (CT, X-rays, U/S, labs)? Why? @ -None What meds were considered but not given or refused? Why? @ -None Did you discuss the management of the patient with other professionals (professionals i.e. , PA, ASSISTANT PROJECT ENGINEER, lab, RT, psych nurse, psychotherapist social worker, behavior support specialist, teacher, district fire management officer, immigration case worker)? Give summary @ -No Was smoking cessation discussed for >3mins.? @ -No Was critical care preformed (if so, how long)? @ -No Were there social determinants of health that impacted care today? How? (Homelessness, low income, unemployed, alcoholism, drug addiction, transportation, low edu. Level, literacy, decrease access to med. care, senior care, rehab)? @ -No Was there de-escalation of care discussed even if they declined (Discuss DNR or withdrawal of care, Hospice)? DNR status @ -No What co-morbidities impacted this encounter? (DM, HTN, Smoking, COPD, CAD, Cancer, CVA, ARF, Chemo, Hep., AIDS, mental health diagnosis, sleep apnea, morbid obesity)? @ -Pseudotumor Was patient admitted / discharged? Hospital course, mention meds given and route, prescriptions, significant lab abnormalities, going to OR and other pertinent info. @ -Discharge 43-year-old female with a past medical history significant for pseudotumor presenting to the ED with a chief complaint of headache. Patient reports earlier in the month was diagnosed with influenza. Since then reports overall improvement of URI symptoms however states that she has had some continuous congestion, rhinorrhea, and headache which has not gone away for the last 3 weeks. On examination, did have left frontal sinus tenderness to palpation. Symptoms likely related to sinusitis. With ongoing symptoms longer for the past 3 weeks patient provided prescription for Augmentin. With history of pseudotumor CT brain was performed. This revealed no acute findings. At this time vital signs stable and afebrile. Discharged home and advised to follow- with PCP. Provided additional prescriptions for Flonase sinusitis and Mucinex. Undiagnosed new problem with uncertain prognosis? @ -No Drug Therapy requiring intensive monitoring for toxicity (Heparin, Nitro, Insulin, Cardizem)? @ -No Were any procedures done? @ -No Diagnosis/symptom? @ -Sinusitis Acute, or Chronic, or Acute on Chronic? @ -Acute Uncomplicated (without systemic symptoms) or Complicated (systemic symptoms)? @ -Uncomplicated Side effects of treatment? @ -No Exacerbation, Progression, or Severe Exacerbation? @ -No Poses a threat to life or bodily function? How? (Chest pain, [place], MD, pneumonia, PE, COPD, DKA, ARF, appy, cholecystitis, CVA, Diverticulitis, Homicidal, Suicidal, threat to staff... and all critical care pts) @ -No (Sanchez Quan) - Lab Data Lab Results 10/08/23 Range/Units 20:27 Influenza Type A (PCR) Not Detected (Not Detectd) Influenza Type B (PCR) Not Detected (Not Detectd) RSV (PCR) Not Detected (Not Detectd) SARS-CoV-2 (PCR) Not Detected (Not Detectd) Disposition <Surekha Alicea - Last Filed: 10/08/23 19:56> Is patient prescribed a controlled substance at d/c from ED?: No <Sanchez Quan - Last Filed: 10/08/23 23:02> Clinical Impression: Sinusitis Disposition: HOME SELF-CARE Condition: Good Instructions (If sedation given, give patient instructions): Sinusitis (ED) Additional Instructions: Please return to the Emergency Department if symptoms worsen or any other concerns. Please follow-up with your primary care provider. Prescriptions: Amoxic-Pot Clav 875-125Mg [Augmentin 875-125] 1 tab PO Q12HR 7 Days #14 tab Fluticasone Nasal Raymond [Flonase Nasal Raymond] 2 spr EA NOSTRIL DAILY #16 gm Phenylephrine/Dm/Acetaminop/GG [Mucinex Sinus-Max Pressure-Cgh] 1 each PO DIRECTED PRN #16 tablet PRN Reason: Pain Referrals: None,Stated [Primary Care Provider] - 1-2 days
[2023-10-08 19:57] VITALS: TEMP 98.5
[2023-10-08] MEDS: IBUPROFEN ORAL SUSP 100 MG/5 ML CUP PO ONE (21:11)
--- NOTE | 2023-10-08 21:41 | XR ---
EXAMINATION TYPE: XR chest 2V DATE OF EXAM: 10/08/2023 9:35 PM CLINICAL INDICATION:Female, 43 years old with history of r/o pna; [facility] COMPARISON: Chest radiographs from 02/18/2022 TECHNIQUE: XR chest 2V Frontal and lateral views of the chest. FINDINGS: Lungs/Pleura: There is no evidence of pleural effusion, focal consolidation, or pneumothorax. Pulmonary vascularity: Unremarkable. Heart/mediastinum: Cardiomediastinal silhouette is unremarkable. Musculoskeletal: No acute osseous pathology. IMPRESSION: No acute cardiopulmonary disease/process.
--- NOTE | 2023-10-08 22:48 | CT ---
EXAM: CT Head Without Intravenous Contrast CLINICAL HISTORY: ITS.REASON CT Reason: piedra hx pseudotumor TECHNIQUE: Axial computed tomography images of the head/brain without intravenous contrast. CTDI is 49.1 mGy and DLP is 1079.4 mGy-cm. This CT exam was performed using one or more of the following dose reduction techniques: automated exposure control, adjustment of the mA and/or kV according to patient size, and/or use of iterative reconstruction technique. COMPARISON: No relevant prior studies available. FINDINGS: No acute intracranial hemorrhage. No midline shift or mass effect. The territorial gibson-white matter differentiation is maintained throughout. The ventricles and sulci are commensurate with age. The visualized orbits appear grossly unremarkable. The calvarium is intact. The visualized paranasal sinuses and mastoid air cells are grossly clear. IMPRESSION: No acute intracranial hemorrhage, midline shift, or mass effect.
[2023-10-09 00:13] VITALS: BP 124/79; PULSE 59; RESP 16
== END 2023-10-09 00:03 | disposition home or self-care (01) ==
LOC: EC 19:39
DX: J32.9 Chronic sinusitis, unspecified (principal); J45.909 Unspecified asthma, uncomplicated; I10 Essential (primary) hypertension; F17.200 Nicotine dependence, unspecified, uncomplicated; F12.90 Cannabis use, unspecified, uncomplicated; Z86.59 Personal history of other mental and behavioral disorders; Z88.8 Allergy status to other drugs, medicaments and biological substances; Z20.822 Contact with and (suspected) exposure to COVID-19
CPT/HCPCS: 70450; 71046; 87636; 99284

== ENCOUNTER 2023-11-08 17:50 | Emergency (ER) | payer OTHER ==
[2023-11-08 18:14] VITALS: RESP 18
--- NOTE | 2023-11-08 18:29 | ED ---
Headache HPI - General Source: patient, RN notes reviewed Mode of arrival: ambulatory Limitations: no limitations <RashidaShara - Last Filed: 11/08/23 18:27> - General Source: patient, RN notes reviewed, old records reviewed <Remi Hwang - Last Filed: 11/08/23 23:03> - General Chief Complaint: Headache Stated Complaint: head pain Time Seen by Provider: 11/08/23 18:05 - History of Present Illness Initial Comments: Quick Note-this is a 43-year-old female presents to the emergency department chief complaint of headache. Patient states that the headache is located over the left side of her temporal region and is continuous in nature has been persistent over the past month. Patient states that she was diagnosed with the flu and multiple sinus infections. Many antibiotic. Patient states he had a history of pseudotumor cerebri and suffers from headaches. Patient visits with the methadone clinic. States she had a CT done of her head a month ago that was 'normal'. (Shara Field) Is a 43-year-old female who presents emergency department complaining of a headache. Has a history of chronic migraines and headaches. Is on methadone. States she has been having sinus pressure with these headaches for months. W orse over the last few days. Located over the frontal sinuses. Cells congestion as well. Is a tobacco user. Presents for further evaluation at this time. Denies any fevers or chills. Endorses nonproductive cough. Denies any nausea, vomiting, abdominal pain. Patient originally seen as a quick note. Presents for further evaluation at this time.Does states she has a history of possible pseudotumor cerebri. (Remi Hwang) - Related Data Home Medications Medication Instructions Recorded Confirmed Acetaminophen/Diphenhydramine 1 tab PO HS PRN 02/05/22 02/18/22 [Tylenol PM 500-25mg] HYDROcodone/APAP 5-325MG [[place] 1 tab PO BID PRN 02/18/22 02/18/22 5-325] Ibuprofen [Motrin] 600 mg PO Q8HR PRN 02/18/22 02/18/22 OXcarbazepine [Trileptal] 900 mg PO HS 02/18/22 02/18/22 tiZANidine [Zanaflex] 4 mg PO TID PRN 02/18/22 02/18/22 Previous Rx's Medication Instructions Recorded Amoxic-Pot Clav 875-125Mg 1 tab PO Q12HR 7 Days #14 tab 10/08/23 [Augmentin 875-125] Fluticasone Nasal [place] [Flonase 2 spr EA NOSTRIL DAILY #16 gm 10/08/23 Nasal [place]] Phenylephrine/Dm/Acetaminop/GG 1 each PO DIRECTED PRN #16 10/08/23 [Mucinex Sinus-Max Pressure-Cgh] tablet Albuterol Inhaler [Ventolin Hfa 1 puff INHALATION TID #8 gm 11/08/23 Inhaler] predniSONE [Deltasone] 40 mg PO DAILY 5 Days #10 tab 11/08/23 Allergies Allergy/AdvReac Type Severity Reaction Status Date / Time fludrocortisone Allergy Severe ELEVATED Verified 11/08/23 18:01 [From [facility]] BLOODPRESSURE Review of Systems ROS Other: All systems not noted in ROS Statement are negative. <Shara Field - Last Filed: 11/08/23 18:27> ROS Other: All systems not noted in ROS Statement are negative. <Remi Hwang - Last Filed: 11/08/23 23:03> ROS Statement: Those systems with pertinent positive or pertinent negative responses have been documented in the HPI. Review of Systems: CONST: Denies fever EYES: Denies blurry vision ENT: Endorses congestion C/V: Denies Chest pain RESP: Denies shortness of breath GI: Denies abdominal pain : Denies dysuria SKIN: Denies rash. MSK: Denies joint pain. NEURO: Endorses headache (Remi Hwang) Past Medical History Past Medical History: Asthma, Cancer, GERD/Reflux, Hypertension, Seizure Disorder Additional Past Medical History / Comment(s): POTS, LAST SEIZURE MONTHS AGO, HX TIA 2014 WHICH "AFFECTED MEMORY & COGNITIVE FUNCTION", STOMACH ULCERS, NAUSEA & VOMITING., BACK PAIN, MELANOMA , RECENT ANEMIA AND LOW B-12, MIGRAINES. pseudotumercerebre History of Any Multi-Drug Resistant Organisms: None Reported Past Surgical History: Back Surgery Additional Past Surgical History / Comment(s): 14 LAPAROSCOPIES, AND 15 D & C'S- PATIENT WILL BRING LIST OF ADDITIONAL SURGERIES Past Anesthesia/Blood Transfusion Reactions: No Reported Reaction, Motion Sickness Additional Past Anesthesia/Blood Transfusion Reaction / Comment(s): MOTHER- PONV AND HEADACHES Past Psychological History: Anxiety Smoking Status: Current every day smoker Past Alcohol Use History: None Reported Past Drug Use History: Marijuana - Past Family History Mother Family Medical History: No Reported History <Shara Field - Last Filed: 11/08/23 18:27> General Exam Limitations: no limitations <Shara Field - Last Filed: 11/08/23 18:27> <Remi Hwang - Last Filed: 11/08/23 23:03> - General Exam Comments Initial Comments: Visual Physical Exam Vital signs reviewed General: Well-appearing, nontoxic, no acute distress. Head: Normocephalic, atraumatic Eyes: PERRLA, EOMI ENT: Airway patent Chest: Nonlabored breathing Skin: No visual rash, normal skin tone Neuro: Alert and oriented 3 Musculoskeletal: No gross abnormalities (Shara Field) General: Appears in no acute distress. HEAD: Normal with no signs of head trauma. EYES: PERRLA, EOMI, conjunctiva normal, no discharge. Pulls 3 mm and equal bilaterally. ENT: Hearing grossly intact, normal oropharynx. Frontal sinus tenderness to palpation. RESPIRATORY: Mild end expiratory wheezing. No hypoxia. No increased work of br eathing. C/V: Regular rate and rhythm. S1 and S2 auscultated, no edema, peripheral pulses 2+ and intact throughout ABD: Abd is soft, nontender, nondistended EXT: Normal range of motion, no obvious deformity SKIN: No rashes or lesions observed on exposed skin. NEURO: Alert and oriented x 4. GCS of 15. No focal deficits. (Remi Hwang) Course Vital Signs 11/08/23 11/08/23 17:58 21:13 Temperature 98.1 F 98.3 F Pulse Rate 94 63 Respiratory 18 18 Rate Blood Pressure 157/88 120/73 O2 Sat by Pulse 99 100 Oximetry Medical Decision Making <Shara Field - Last Filed: 11/08/23 18:27> - Lab Data Result diagrams: 11/08/23 18:48 11/08/23 18:48 <Remi Hwang - Last Filed: 11/08/23 23:03> - Medical Decision Making I completed the quick note portion of this chart signed Shara Field PA-C (Shara Field) Was pt. sent in by a medical professional or institution ([facility] Dee, NAILING MACHINE FEEDER, urgent care, hospital, or skilled nursing...) When possible be specific @ -No Did you speak to anyone other than the patient for history (EMS, parent, family, police, friend...)? What history was obtained from this source @ -No Did you review nursing and triage notes (agree or disagree)? Why? @ -I reviewed and agree with nursing and triage notes Were old charts reviewed (outside hosp., previous admission, EMS record, old EKG, old radiological studies, urgent care reports/EKG's, skilled nursing records)? Report findings @ -Old charts reviewed Differential Diagnosis (chest pain, altered mental status, abdominal pain women, abdominal pain men, vaginal bleeding, weakness, fever, dyspnea, syncope, headache, dizziness, GI bleed, back pain, seizure, CVA, palpatations, mental health, musculoskeletal)? @ -Sinus infection, headache, pseudotumor cerebri. This list is not all inclusive. EKG interpreted by me (3pts min.). @ -None done X-rays interpreted by me (1pt min.). @ -Chest x-ray shows no obvious acute cardiopulmonary process. CT interpreted by me (1pt min.). @ -CT brain negative for any obvious acute intracranial process. U/S interpreted by me (1pt. min.). @ -None done What testing was considered but not performed or refused? (CT, X-rays, U/S, labs)? Why? @ -None What meds were considered but not given or refused? Why? @ -None Did you discuss the management of the patient with other professionals (professionals i.e. TIEN Dee, NAILING MACHINE FEEDER, lab, RT, psych nurse, high school social studies teacher, commercial estimator, teacher, hearing officer, director case management)? Give summary @ -No Was smoking cessation discussed for >3mins.? @ -No Was critical care preformed (if so, how long)? @ -No Were there social determinants of health that impacted care today? How? (Homelessness, low income, unemployed, alcoholism, drug addiction, transportation, low edu. Level, literacy, decrease access to med. care, long-term, rehab)? @ -No Was there de-escalation of care discussed even if they declined (Discuss DNR or withdrawal of care, Hospice)? DNR status @ -No What co-morbidities impacted this encounter? (DM, HTN, Smoking, COPD, CAD, Cancer, CVA, ARF, Chemo, Hep., AIDS, mental health diagnosis, sleep apnea, morbid obesity)? @ -None Was patient admitted / discharged? Hospital course, mention meds given and route, prescriptions, significant lab abnormalities, going to OR and other pertinent info. @ -Patient presents with headache, sinus pressure. Presents for further evaluation. We will obtain CT brain, as well as basic labs and chest x-ray. She was in agreement this plan. Vital signs within acceptable limits. Patient be symptomatically treat with IV fluids, Reglan, Benadryl. Patient started on prednisone as well for headache as well as the wheezing that she is currently experiencing that is mild. She is allergic to fludrocortisone but prednisone has functioned fine in the past which is why we are sticking of this medication. Labs are unremarkable including negative viral swabs. CT brain unremarkable. Chest x-ray unremarkable. On reevaluation, patient's headache is slightly improved at this time. She did miss her evening dose of methadone as well today and is asking for dose of this which I declined as we typically do not dose this. She was in agreement this p cesar. She will be given Toradol prior to discharge as well as an albuterol inhaler and prednisone. Patient was in agreement this plan. She will be discharged home at this time. Discussed symptoms could be chronic sinusitis. Does not meet criteria for antibiotic administration at this time I will provide the patient with a prescription for prednisone, albuterol inhaler. I instructed the patient to follow up with their PCP in the next 1-3 days.. I explained that the patient should return to the emergency department if they experience any worsening symptoms. Strict return precautions were d iscussed with the patient. The patient expressed understanding of these instructions. I answered all questions that the patient had. The patient was discharged home in good condition with their prescriptions and follow up information. Undiagnosed new problem with uncertain prognosis? @ -No Drug Therapy requiring intensive monitoring for toxicity (Heparin, Nitro, Insulin, Cardizem)? @ -No Were any procedures done? @ -No Diagnosis/symptom? @ -Sinusitis, headache Acute, or Chronic, or Acute on Chronic? @ -Acute on chronic Uncomplicated (without systemic symptoms) or Complicated (systemic symptoms)? @ -Uncomplicated Side effects of treatment? @ -No Exacerbation, Progression, or Severe Exacerbation? @ -No Poses a threat to life or bodily function? How? (Chest pain, [place], ND, pneumonia, PE, COPD, DKA, ARF, appy, cholecystitis, CVA, Diverticulitis, Homicidal, Suicidal, threat to staff... and all critical care pts) @ -No (Remi Hwang) - Lab Data Lab Results 11/08/23 11/08/23 11/08/23 Range/Units 18:48 18:48 18:48 WBC 3.8 (3.8-10.6) k/uL RBC 4.38 (3.80-5.40) m/uL Hgb 11.7 (11.4-16.0) gm/dL Hct 37.9 (34.0-46.0) % MCV 86.4 (80.0-100.0) fL MCH 26.6 (25.0-35.0) pg MCHC 30.8 L (31.0-37.0) g/dL RDW 16.7 H (11.5-15.5) % Plt Count 233 (150-450) k/uL MPV 8.4 Neutrophils % 52 % Lymphocytes % 39 % Monocytes % 4 % Eosinophils % 2 % Basophils % 0 % Neutrophils # 2.0 (1.3-7.7) k/uL Lymphocytes # 1.5 (1.0-4.8) k/uL Monocytes # 0.2 (0-1.0) k/uL Eosinophils # 0.1 (0-0.7) k/uL Basophils # 0.0 (0-0.2) k/uL Hypochromasia Slight Anisocytosis Slight Sodium 140 (137-145) mmol/L Potassium 3.9 (3.5-5.1) mmol/L Chloride 109 H (98-107) mmol/L Carbon Dioxide 26 (22-30) mmol/L Anion Gap 5 mmol/L BUN 12 (7-17) mg/dL Creatinine 0.68 (0.52-1.04) mg/dL Est GFR (CKD-EPI)AfAm >90 (>60 ml/min/1.73 sqM) Est GFR (CKD-EPI)NonAf >90 (>60 ml/min/1.73 sqM) Glucose 81 (74-99) mg/dL Calcium 9.6 (8.4-10.2) mg/dL Influenza Type A (PCR) Not Detected (Not Detectd) Influenza Type B (PCR) Not Detected (Not Detectd) RSV (PCR) Not Detected (Not Detectd) SARS-CoV-2 (PCR) Not Detected (Not Detectd) Disposition <Shara Field - Last Filed: 11/08/23 18:27> Is patient prescribed a controlled substance at d/c from ED?: No Time of Disposition: 21:00 <Remi Hwang - Last Filed: 11/08/23 23:03> Clinical Impression: Sinusitis, Headache Disposition: HOME SELF-CARE Condition: Good Instructions (If sedation given, give patient instructions): Sinusitis (ED), Acute Headache (ED) Prescriptions: RX: predniSONE [Deltasone] 40 mg PO DAILY 5 Days #10 tab RX: Albuterol Inhaler [Ventolin Hfa Inhaler] 1 puff INHALATION TID #8 gm Referrals: None,Stated [Primary Care Provider] - 1-2 days Forms: Area PCPs
[2023-11-08] MEDS: SODIUM CHLORIDE 0.9% 1,000 ML IV STA (18:59)
[2023-11-08] MEDS: diphenhydrAMINE 50 MG/ML 1 ML VIAL IVP STA (19:01)
[2023-11-08] MEDS: METOCLOPRAMIDE 5 MG/ML 2 ML VIAL IVP STA (19:02)
[2023-11-08 19:09] LABS: Anisocytosis Slight; Basophils % (A) 0 %; Eosinophils # (A) 0.1 k/uL (0-0.7); Eosinophils % (A) 2 %; HCT 37.9 % (34.0-46.0); HGB 11.7 gm/dL (11.4-16.0); Hypochromasia Slight; Lymphocytes # (A) 1.5 k/uL (1.0-4.8); Lymphocytes % (A) 39 %; MCH 26.6 pg (25.0-35.0); MCHC 30.8 g/dL (31.0-37.0); MCV 86.4 fL (80.0-100.0); Mean Platelet Volume 8.4; Monocytes # (A) 0.2 k/uL (0-1.0); Monocytes % (A) 4 %; Neutrophils % (A) 52 %; Platelet Count 233 k/uL (150-450); RBC 4.38 m/uL (3.80-5.40); RDW 16.7 % (11.5-15.5); WBC 3.8 k/uL (3.8-10.6)
[2023-11-08 19:27] LABS: African American GFR (CKD) >90 (>60 ml/min/1.73 sqM); Anion Gap 5 mmol/L; Blood Urea Nitrogen 12 mg/dL (7-17); Calcium 9.6 mg/dL (8.4-10.2); Carbon Dioxide 26 mmol/L (22-30); Chloride 109 mmol/L (98-107); Glucose 81 mg/dL (74-99); Non-African American GFR(CKD) >90 (>60 ml/min/1.73 sqM); Potassium 3.9 mmol/L (3.5-5.1); Sodium 140 mmol/L (137-145)
--- NOTE | 2023-11-08 19:40 | CT ---
EXAMINATION TYPE: CT brain wo con CT DLP: 1128.4 mGycm, Automated exposure control for dose reduction was used. DATE OF EXAM: 11/08/2023 7:29 PM COMPARISON: 02/05/2022. CLINICAL INDICATION:Female, 43 years old with history of headache, headache x 2 months TECHNIQUE: Brain: Axial CT images of the brain were obtained with coronal and sagittal reformats created and rev iewed. Contrast used: None. Oral contrast used: None. FINDINGS: Extra-axial spaces: No abnormal extra-axial fluid collections. Ventricular system: Within normal limits. Cerebral parenchyma: No increased attenuation to suggest acute intraparenchymal hemorrhage. The gra y-white matter interface appears maintained. No significant atrophy. White matter unremarkable by C T. Cerebellum: No acute abnormality. Mass effect: No evidence of mass effect or midline shift. Intracranial vasculature: Unremarkable Soft tissues: No acute or concerning abnormality. Visualized orbits: Orbital contents appear grossly intact. Calvarium/osseous structures: No evidence of calvarial fracture. Paranasal sinuses and mastoid air cells: Clear. MRI is more sensitive for detecting acute processes such as infarct, and may be considered if clinica lly warranted. IMPRESSION: No acute intracranial CT abnormality.
--- NOTE | 2023-11-08 21:00 | XR ---
EXAM: XR chest 1V portable CLINICAL INDICATION:Female, 43 years old with history of cough; [facility] COMPARISON: 10/08/2023 TECHNIQUE: Chest single view. FINDINGS: Lines/tubes/devices: None. Cardiomediastinum: Cardiac silhouette appears normal in size. Unremarkable mediastinal silhouette. Vasculature: No increased pulmonary vasculature. Lungs/pleura: No consolidation, sizeable effusion, or visible pneumothorax. Bones/soft tissues: Bony thorax appears grossly intact as seen. Regional soft tissues appear unremarkable. IMPRESSION: No acute findings, or significant interval change.
[2023-11-08] MEDS: KETOROLAC 15 MG/ML 1 ML VIAL IVP STA (21:15)
[2023-11-08] MEDS: predniSONE 20 MG TAB PO STA (21:17)
[2023-11-08 21:51] VITALS: BP 120/73; PULSE 63; TEMP 98.3
== END 2023-11-08 21:26 | disposition home or self-care (01) ==
LOC: EC 17:50
DX: J32.9 Chronic sinusitis, unspecified (principal); R51.9 Headache, unspecified; F17.200 Nicotine dependence, unspecified, uncomplicated; F12.90 Cannabis use, unspecified, uncomplicated; Z88.8 Allergy status to other drugs, medicaments and biological substances
CPT/HCPCS: 36415; 80048; 85025; 87636; 71045; 70450; 99284; 96374; 96375 ×2; 96361 ×2; J1200; J2765; J1885; J7512

== ENCOUNTER 2024-11-07 16:48 | Emergency (ER) | payer OTHER ==
--- NOTE | 2024-11-07 17:34 | ED ---
Headache HPI - General Source: patient, RN notes reviewed Mode of arrival: ambulatory Limitations: no limitations <Jimena Nguyễn - Last Filed: 11/07/24 17:33> <Shara Field - Last Filed: 11/07/24 23:18> - General Chief Complaint: Headache Stated Complaint: Headache, Blurred Vision Time Seen by Provider: 11/07/24 17:33 - History of Present Illness Initial Comments: Quick note: 44-year-old female presented the ER for evaluation of a headache. Patient reports past medical history significant of pseudotumor cerebri. She states on September 11 she had a bladder lift surgery completed at [facility]. She waited 7 to 8 weeks to have sexual intercourse. Patient states after having sexual intercourse she will have a severe headache with radiation to her left side and left neck within 5 minutes. She states this does resolve after sitting up. She admits to nausea. (Jimena Nguyễn) This is a 44-year-old female with a history of pseudotumor cerebri presented to emergency department for evaluation of a intermittent headache. Patient states that over the past week she has had an episode of a moderate to severe headache that is lasted for approximately 1 minute. She states that this headache has been associated with sexual intercourse while she has been laying down. She sta estefani that when she has sat of the pain resolved in approximately 1 minute. Pain has been located to the left side of her head with radiation to the left side of the neck with associated mild nausea. Patient states that she had a mild headache while at work today and decided to report to emergency department for further evaluation. She states that she does have a history of a stroke about 7 years ago with no residual deficits. Denies blood thinner use. Denies recent falls or injuries. Currently patient states that she is feeling well is denying headache, visual changes, focal neurological deficits. (Shara Field) - Related Data Home Medications Medication Instructions Recorded Confirmed Acetaminophen/Diphenhydramine 1 tab PO HS PRN 02/05/22 02/18/22 [Tylenol PM 500-25mg] HYDROcodone/APAP 5-325MG [[place] 1 tab PO BID PRN 02/18/22 02/18/22 5-325] Ibuprofen [Motrin] 600 mg PO Q8HR PRN 02/18/22 02/18/22 OXcarbazepine [Trileptal] 900 mg PO HS 02/18/22 02/18/22 tiZANidine [Zanaflex] 4 mg PO TID PRN 02/18/22 02/18/22 Previous Rx's Medication Instructions Recorded Amoxic-Pot Clav 875-125Mg 1 tab PO Q12HR 7 Days #14 tab 10/08/23 [Augmentin 875-125] Fluticasone Nasal [place] [Flonase 2 spr EA NOSTRIL DAILY #16 gm 10/08/23 Nasal [place]] Phenylephrine/Dm/Acetaminop/GG 1 each PO DIRECTED PRN #16 10/08/23 [Mucinex Sinus-Max Pressure-Cgh] tablet Albuterol Inhaler [Ventolin Hfa 1 puff INHALATION TID #8 gm 11/08/23 Inhaler] predniSONE [Deltasone] 40 mg PO DAILY 5 Days #10 tab 11/08/23 Allergies Allergy/AdvReac Type Severity Reaction Status Date / Time fludrocortisone Allergy Severe ELEVATED Verified 11/07/24 16:55 [From [facility]] BLOODPRESSURE Review of Systems ROS Other: All systems not noted in ROS Statement are negative. <Jimena Nguyễn - Last Filed: 11/07/24 17:33> ROS Other: All systems not noted in ROS Statement are negative. <Shara Field - Last Filed: 11/07/24 23:18> ROS Statement: Those systems with pertinent positive or pertinent negative responses have been documented in the HPI. Past Medical History Past Medical History: Asthma, Cancer, GERD/Reflux, Hypertension, Seizure Disorder Additional Past Medical History / Comment(s): POTS, LAST SEIZURE MONTHS AGO, HX TIA 2014 WHICH "AFFECTED MEMORY & COGNITIVE FUNCTION", STOMACH ULCERS, NAUSEA & VOMITING., BACK PAIN, MELANOMA , RECENT ANEMIA AND LOW B-12, MIGRAINES. pseudotumercerebre History of Any Multi-Drug Resistant Organisms: None Reported Past Surgical History: Back Surgery Additional Past Surgical History / Comment(s): 14 LAPAROSCOPIES, AND 15 D & C'S- PATIENT WILL BRING LIST OF ADDITIONAL SURGERIES Past Anesthesia/Blood Transfusion Reactions: No Reported Reaction, Motion Sickness Additional Past Anesthesia/Blood Transfusion Reaction / Comment(s): MOTHER- PONV AND HEADACHES Past Psychological History: Anxiety Smoking Status: Current every day smoker Past Alcohol Use History: None Reported Past Drug Use History: Marijuana - Past Family History Mother Family Medical History: No Reported History <Jimena Nguyễn - Last Filed: 11/07/24 17:33> General Exam Limitations: no limitations <Jimena Nguyễn - Last Filed: 11/07/24 17:33> General appearance: alert, in no apparent distress Eye exam: Present: normal appearance, PERRL, EOMI. Absent: scleral icterus, conjunctival injection, periorbital swelling Neck exam: Present: normal inspection. Absent: tenderness, meningismus, lymphadenopathy Respiratory exam: Present: normal lung sounds bilaterally. Absent: respiratory distress, wheezes, rales, rhonchi, stridor Cardiovascular Exam: Present: regular rate, normal rhythm, normal heart sounds. Absent: systolic murmur, diastolic murmur, rubs, gallop, clicks GI/Abdominal exam: Present: soft, normal bowel sounds. Absent: distended, tenderness, guarding, rebound, rigid Extremities exam: Present: normal inspection, full ROM, normal capillary refill. Absent: tenderness, pedal edema, joint swelling, calf tenderness Back exam: Present: normal inspection Neurological exam: Present: alert, oriented X3, CN II-XII intact Skin exam: Present: warm, dry, intact, normal color. Absent: rash <Shara Field - Last Filed: 11/07/24 23:18> - General Exam Comments Initial Comments: Visual Physical Exam Vital signs reviewed General: Well-appearing, nontoxic, no acute distress. Head: Normocephalic, atraumatic Eyes: PERRLA, EOMI ENT: Airway patent Chest: Nonlabored breathing Skin: No visual rash, normal skin tone Neuro: Alert and oriented 3 Musculoskeletal: No gross abnormalities (Jimena Nguyễn) Course Vital Signs 11/07/24 11/07/24 16:50 21:10 Temperature 97.6 F 97.9 F Pulse Rate 72 59 L Respiratory 17 18 Rate Blood Pressure 178/105 152/89 O2 Sat by Pulse 100 100 Oximetry Medical Decision Making <Jimena Nguyễn - Last Filed: 11/07/24 17:33> - Lab Data Result diagrams: 11/07/24 19:10 11/07/24 19:10 <Shara Field - Last Filed: 11/07/24 23:18> - Medical Decision Making I performed the quick note portion of this chart. Electronically signed by Jimena Nguyễn PA-C (Jimena Nguyễn) Was pt. sent in by a medical professional or institution (, [facility], [facility], urgent care, hospital, or fpc...) When possible be specific @ -No Did you speak to anyone other than the patient for history (EMS, parent, family, police, friend...)? What history was obtained from this source @ -No Did you review nursing and triage notes (agree or disagree)? Why? @ -I reviewed and agree with nursing and triage notes Were old charts reviewed (outside hosp., previous admission, EMS record, old EKG, old radiological studies, urgent care reports/EKG's, fpc records)? Report findings @ -No old charts were reviewed Differential Diagnosis (chest pain, altered mental status, abdominal pain women, abdominal pain men, vaginal bleeding, weakness, fever, dyspnea, syncope, headache, dizziness, GI bleed, back pain, seizure, CVA, palpatations, mental health, musculoskeletal)? @ -Differential Headache: Migraine, tension, cluster, carbon monoxide, central venous thrombosis, pension karma temporal arteritis, acute closure glaucoma, intercranial hemorrhage, mastoiditis, sinusitis, head injury, this is not meant to be an all-inclusive list. EKG interpreted by me (3pts min.). @ -None X-rays interpreted by me (1pt min.). @ -None done CT interpreted by me (1pt min.). @ -CT of the brain without contrast no acute intracranial process. U/S interpreted by me (1pt. min.). @ -None done What testing was considered but not performed or refused? (CT, X-rays, U/S, labs)? Why? @ -None What meds were considered but not given or refused? Why? @ -None Did you discuss the management of the patient with other professionals (professionals i.e. TIEN Dee, [facility]OOKER, lab, RT, psych nurse, social security assessor, stress engineer, teacher, records officer, case making machine operator)? Give summary @ -No Was smoking cessation discussed for >3mins.? @ -No Was critical care preformed (if so, how long)? @ -No Were there social determinants of health that impacted care today? How? (Homelessness, low income, unemployed, alcoholism, drug addiction, transportation, low edu. Level, literacy, decrease access to med. care, detention, rehab)? @ -No Was there de-escalation of care discussed even if they declined (Discuss DNR or withdrawal of care, Hospice)? DNR status @ -No What co-morbidities impacted this encounter? (DM, HTN, Smoking, COPD, CAD, Cancer, CVA, ARF, Chemo, Hep., AIDS, mental health diagnosis, sleep apnea, morbid obesity)? @ -None Was patient admitted / discharged? Hospital course, mention meds given and route, prescriptions, significant lab abnormalities, going to OR and other pertinent info. @ -Discharge. 44 year old female presents emergency department for complaint of a headache. Patient was originally evaluated emergency department waiting room as a quick note for laboratory testing was rendition to CT imaging. On my evaluation of the patient she is resting comfortably no signs acute distress. Initially, in the waiting room her blood pressure is elevated. Neurological examination completed with no acute deficits. Patient states that she is not experiencing headache at this time and medications were offered however she is declined. Test including CT imaging of the brain without contrast and lab oratory testing is unremarkable. Recommend close follow-up with patient's primary care provider outpatient. Return parameters discussed. Case discussed with Dr. Adkins Undiagnosed new problem with uncertain prognosis? @ -No Drug Therapy requiring intensive monitoring for toxicity (Heparin, Nitro, Insulin, Cardizem)? @ -No Were any procedures done? @ -No Diagnosis/symptom? @ -Headache Acute, or Chronic, or Acute on Chronic? @ -Acute Uncomplicated (without systemic symptoms) or Complicated (systemic symptoms)? @ -Uncomplicated Side effects of treatment? @ -No Exacerbation, Progression, or Severe Exacerbation? @ -No Poses a threat to life or bodily function? How? (Chest pain, [place], [place], pneumonia, PE, COPD, DKA, ARF, appy, cholecystitis, CVA, Diverticulitis, Homicidal, Suicidal, threat to staff... and all critical care pts) @ -No (Stieler,Shara) - Lab Data Lab Results 11/07/24 11/07/24 Range/Units 19:10 19:10 WBC 5.31 (4.50-10.00) 10*3/uL RBC 4.55 (4.10-5.20) 10*6/uL Hgb 14.1 (12.0-15.0) g/dL Hct 40.6 (37.2-46.3) % MCV 89.2 (80.0-97.0) fL MCH 31.0 (27.0-32.0) pg MCHC 34.7 (32.0-37.0) g/dL Plt Count 189 (140-440) 10*3/uL MPV 9.7 (9.5-12.2) fL Immature Gran % (Auto) 0.2 % Neutrophils % 37.7 % Lymphocytes % 52.2 % Monocytes % 5.5 % Eosinophils % 3.6 % Basophils % 0.8 % Immature Gran # 0.01 (0.00-0.04) 10*3/uL Neutrophils # 2.01 (1.80-7.70) 10*3/uL Lymphocytes # 2.77 (0.90-5.00) 10*3/uL Monocytes # 0.29 (0.20-1.00) 10*3/uL Eosinophils # 0.19 (0.04-0.35) 10*3/uL Basophils # 0.04 (0.00-0.10) 10*3/uL Sodium 137 (137-145) mmol/L Potassium 4.6 (3.5-5.1) mmol/L Chloride 102 (98-107) mmol/L Carbon Dioxide 27 (22-30) mmol/L Anion Gap 8 mmol/L BUN 20 H (7-17) mg/dL Creatinine 0.70 (0.52-1.04) mg/dL Est GFR (CKD-EPI)AfAm >90 (>60 ml/min/1.73 sqM) Est GFR (CKD-EPI)NonAf >90 (>60 ml/min/1.73 sqM) Glucose 67 L (74-99) mg/dL Calcium 9.6 (8.4-10.2) mg/dL Total Bilirubin 0.5 (0.2-1.3) mg/dL AST 28 (14-36) U/L ALT 20 (4-34) U/L Alkaline Phosphatase 42 (38-126) U/L Total Protein 7.0 (6.3-8.2) g/dL Albumin 4.8 (3.5-5.0) g/dL Disposition <Jimena Nguyễn - Last Filed: 11/07/24 17:33> Is patient prescribed a controlled substance at d/c from ED?: No Time of Disposition: 21:15 <Shara Field - Last Filed: 11/07/24 23:18> Clinical Impression: Headache Disposition: HOME SELF-CARE Condition: Good Instructions (If sedation given, give patient instructions): Acute Headache (ED) Additional Instructions: Please return to the Emergency Department if symptoms worsen or any other concerns. Referrals: None,Stated [Primary Care Provider] - 1-2 days
--- NOTE | 2024-11-07 19:11 | CT ---
EXAMINATION TYPE: CT brain wo con DATE OF EXAM: 11/07/2024 6:59 PM COMPARISON: 11/08/2023 CLINICAL INDICATION: Female, 44 years old with history of headache, headache TECHNIQUE: CT of the brain is performed utilizing 3 mm thick sections through the posterior fossa and 3 mm thick sections through the remaining calvarium. Study is performed within 24 hours of arrival to the hospital. Contrast used: mL of , (none if empty) CT DLP: 1112.4 mGycm, Automated exposure control for dose reduction was used. FINDINGS: No abnormal hyperdensity is present to suggest an acute intracranial hemorrhage. No mass lesion is evident. No acute infarcts are evident. Ventricles and sulci are appropriate for the patient age. Paranasal sinuses and mastoid air cells within the [id number] are clear. IMPRESSION: 1. No acute intracranial process. Follow up MRI can be performed as clinically indicated. [facility], , 11/07/2024 7:09 PM
[2024-11-07 19:18] LABS: Basophils # (A) 0.04 10*3/uL (0.00-0.10); Basophils % (A) 0.8 %; Eosinophils # (A) 0.19 10*3/uL (0.04-0.35); Eosinophils % (A) 3.6 %; HCT 40.6 % (37.2-46.3); HGB 14.1 g/dL (12.0-15.0); Lymphocytes # (A) 2.77 10*3/uL (0.90-5.00); Lymphocytes % (A) 52.2 %; MCHC 34.7 g/dL (32.0-37.0); MCV 89.2 fL (80.0-97.0); Mean Platelet Volume 9.7 fL (9.5-12.2); Monocytes # (A) 0.29 10*3/uL (0.20-1.00); Monocytes % (A) 5.5 %; Neutrophils # (A) 2.01 10*3/uL (1.80-7.70); Neutrophils % (A) 37.7 %; Platelet Count 189 10*3/uL (140-440); RBC 4.55 10*6/uL (4.10-5.20); RDW 12.5 % (11.5-14.5); WBC 5.31 10*3/uL (4.50-10.00)
[2024-11-07 19:33] LABS: ALT 20 U/L (4-34); African American GFR (CKD) >90 (>60 ml/min/1.73 sqM); Albumin 4.8 g/dL (3.5-5.0); Anion Gap 8 mmol/L; Blood Urea Nitrogen 20 mg/dL (7-17); Calcium 9.6 mg/dL (8.4-10.2); Carbon Dioxide 27 mmol/L (22-30); Chloride 102 mmol/L (98-107); Glucose 67 mg/dL (74-99); Non-African American GFR(CKD) >90 (>60 ml/min/1.73 sqM); Sodium 137 mmol/L (137-145); Total Bilirubin 0.5 mg/dL (0.2-1.3)
[2024-11-07 19:40] LABS: AST 28 U/L (14-36); Alkaline Phosphatase 42 U/L (38-126); Potassium 4.6 mmol/L (3.5-5.1)
[2024-11-07 21:11] VITALS: BP 152/89; PULSE 59; RESP 18; TEMP 97.9
== END 2024-11-07 21:30 | disposition home or self-care (01) ==
LOC: EC 16:48
DX: R51.9 Headache, unspecified (principal); F17.200 Nicotine dependence, unspecified, uncomplicated; Z88.8 Allergy status to other drugs, medicaments and biological substances
CPT/HCPCS: 36415; 70450; 80053; 85025; 99284